=== PATIENT | male | born 1940 | race Caucasian/White ===

== ENCOUNTER → 2018-11-09 | Outpatient (CLI) | payer MEDICARE, BC ==
[2018-11-09 09:50] LABS: Blood Urea Nitrogen 21 mg/dL (9-20)
--- NOTE | 2018-11-09 12:37 | CT ---
EXAMINATION TYPE: CT ChestAbdPelvis w con DATE OF EXAM: 11/09/2018 COMPARISON: CT abdomen dated 02/28/2014 HISTORY: Prostate cancer CT DLP: 1543.4 mGycm Automated exposure control for dose reduction was used. CONTRAST: CT scan of the chest, abdomen and pelvis is performed with Oral Contrast and with IV Contrast, patien t injected with 100 mL of Isovue 300. FINDINGS: There is a Port-A-Cath in the right pectoral region, catheter extends via the right jugular approach into the superior vena cava. There is left axillary adenopathy present. LUNGS: The lungs are grossly clear, there is no concerning parenchymal mass or nodule identified. T here is no pleural effusion or pneumothorax seen. The tracheobronchial tree is patent. MEDIASTINUM: There are no greater than 1 cm hilar or mediastinal lymph nodes. Coronary artery calcif ication is present. Trace pericardial effusion. AORTA: No significant abnormality is seen. OTHER: No additional significant abnormality is seen. LIVER/GB: Multiple low dense foci scattered within the liver, greater than 20 lesions, the largest me asures approximately 3.3 cm similar to prior exam, gallbladder is unremarkable PANCREAS: No significant abnormality is seen. SPLEEN: No significant abnormality is seen. ADRENALS: No significant abnormality is seen. KIDNEYS: Cystic foci associated with the right greater than left kidney are again seen REPRODUCTIVE ORGANS: Prostate is not seen. BOWEL: There is extensive diverticular change especially in the sigmoid colon, the appendix is vasquez l. FREE AIR: No Free Air visible. ASCITES: None seen. RETROPERITONEAL ADENOPATHY: There are multiple retroperitoneal nodes which aren't enlarged or have d eveloped in the interval. LYMPH NODES: No greater than 1 cm abdominal or pelvic lymph nodes are appreciated. URINARY BLADDER: There is a thickened wall possibly due to lack of distention PELVIC ADENOPATHY: None visualized. Inguinal hernia noted containing fat on the left OSSEOUS STRUCTURES: No bilateral spondylolysis at L5, there are degenerative disc changes in the vis ualized spine. Stable probable bone island in the posterior left ilium.. IMPRESSION: Retroperitoneal and left axillary adenopathy, postop changes, additional findings above
--- NOTE | 2018-11-09 14:17 | NM ---
EXAMINATION TYPE: NM bone scan whole body DATE OF EXAM: 11/09/2018 COMPARISON: Whole body bone scan December 06, 2013 HISTORY: History of prostate cancer. Delayed whole-body scanning was performed following the injection of 25.9 mCi Tc 99m MDP. Images acq uired 3 hours post injection. FINDINGS: There are now innumerable foci of radiotracer uptake corresponding to CT with multifocal areas throug hout the lumbar spine corresponding to sclerotic lesions, radiotracer focus left iliac bone near sacr oiliac joint for reference, large radiotracer focus medial distal femoral diaphysis left knee with ad ditional involvement near left knee joint. Bilateral rib lesions, proximal left humeral lesion, and l esion near lateral right scapula glenohumeral joint corresponding to sclerotic foci consistent with i nterval development of osseous metastatic disease. IMPRESSION: Diffuse osseous metastatic disease now present as detailed above.
== END | disposition home or self-care (01) ==
LOC: RADNMMAIN 09:16
PROVIDERS: ATTEND Internal Medicine Hematology & Oncology
DX: C61 Malignant neoplasm of prostate (principal); Z98.890 Other specified postprocedural states
CPT/HCPCS: 82565; 84520; 71260; 74177; 78306; A9503; J1642; Q9967

== ENCOUNTER 2019-01-31 10:51 | Inpatient (IN) | payer MEDICARE, BC ==
[2019-01-31] MEDS ORDERED: SODIUM CHLORIDE 0.9% 1,000 ML IV STA ×2 (11:18→13:00)
[2019-01-31 12:36] LABS: Basophils % (A) 0 %; Eosinophils % (A) 0 %; HCT 32.1 % (39.0-53.0); HGB 10.7 gm/dL (13.0-17.5); Lymphocytes # (A) 0.7 k/uL (1.0-4.8); Lymphocytes % (A) 6 %; MCH 32.6 pg (25.0-35.0); MCHC 33.2 g/dL (31.0-37.0); MCV 97.9 fL (80.0-100.0); Mean Platelet Volume 7.6; Monocytes # (A) 0.5 k/uL (0-1.0); Monocytes % (A) 4 %; Neutrophils # (A) 11.2 k/uL (1.3-7.7); Neutrophils % (A) 89 %; Platelet Count 216 k/uL (150-450); RBC 3.28 m/uL (4.30-5.90); RDW 15.4 % (11.5-15.5); WBC 12.6 k/uL (3.8-10.6)
[2019-01-31 12:37] LABS: Partial Thromboplastin Time 27.1 sec (22.0-30.0); Prothrombin Time 10.7 sec (9.0-12.0)
[2019-01-31 12:41] LABS: Ammonia <9 umol/L (<30); Lactic Acid, Venous 0.9 mmol/L (0.7-2.0)
[2019-01-31 12:42] LABS: ALT 24 U/L (21-72); AST 125 U/L (17-59); Albumin 3.5 g/dL (3.5-5.0); Alkaline Phosphatase 339 U/L (38-126); Anion Gap 7 mmol/L; Blood Urea Nitrogen 20 mg/dL (9-20); Calcium 7.6 mg/dL (8.4-10.2); Carbon Dioxide 22 mmol/L (22-30); Chloride 101 mmol/L (98-107); Glucose 106 mg/dL (74-99); Magnesium 2.4 mg/dL (1.6-2.3); Phosphorus 1.6 mg/dL (2.5-4.5); Potassium 5.3 mmol/L (3.5-5.1); Sodium 130 mmol/L (137-145); Total Bilirubin 0.6 mg/dL (0.2-1.3); Total Protein 5.9 g/dL (6.3-8.2)
--- NOTE | 2019-01-31 12:49 | ED ---
Weakness HPI - General Chief complaint: Weakness Stated complaint: altered mental status, vomiting Time Seen by Provider: 01/31/19 11:18 Source: patient, RN notes reviewed, old records reviewed Mode of arrival: wheelchair Limitations: no limitations - History of Present Illness Initial comments: This is a 78-year-old male the ER for evaluation. Patient has pertinent history of prostate cancer with bony metastasis. Severe pain intractable nausea vomi ting inability to eat or drink appropriately. Patient has had persistent weight loss. To decreased intake, increasing weakness increasing altered mental status. Patient not feeling well, no recent hospital admissions no fevers. Again positive nausea with no vomiting or diarrhea. No recent travel history or known significant sick contacts MD Complaint: generalized weakness -: month(s) Location: generalized Severity: moderate Severity scale (1-10): 7 Consistency: constant Improves with: none Worsens with: none Context: recent illness, history of similar Associated Symptoms: loss of appetite, nausea/vomiting - Related Data Home Medications Medication Instructions Recorded Confirmed Aspirin EC [Ecotrin Low Dose] 81 mg PO DAILY 01/31/19 01/31/19 Calcium Carbonate/Vitamin D3 1 tab PO DAILY 01/31/19 01/31/19 [Calcium 600-Vit D3 200 Tablet] Gabapentin [Neurontin] 200 mg PO TID 01/31/19 01/31/19 Lisinopril [Zestril] 10 mg PO DAILY 01/31/19 01/31/19 Multivitamins, Thera [Multivitamin 1 tab PO DAILY 01/31/19 01/31/19 (formulary)] [place]-3 Fatty Acids [[place]-3] 1,000 mg PO DAILY 01/31/19 01/31/19 Prochlorperazine [Compazine] 10 mg PO Q6H PRN 01/31/19 01/31/19 Simvastatin [Zocor] 10 mg PO HS 01/31/19 01/31/19 predniSONE 10 mg PO DAILY 01/31/19 01/31/19 rOPINIRole HCL [Requip] 0.5 mg PO HS 01/31/19 01/31/19 traMADol HCl [Ultram] 50 mg PO Q6H PRN 01/31/19 01/31/19 Allergies Allergy/AdvReac Type Severity Reaction Status Date / Time No Known Allergies Allergy Verified 01/31/19 11:45 Review of Systems ROS Statement: Those systems with pertinent positive or pertinent negative responses have been documented in the HPI. ROS Other: All systems not noted in ROS Statement are negative. Past Medical History Past Medical History: Cancer, Hyperlipidemia, Hypertension Additional Past Medical History / Comment(s): PROSTATE CANCER, METASTASIS TO BONES. Past Surgical History: Prostate Surgery Past Psychological History: No Psychological Hx Reported Smoking Status: Former smoker Past Alcohol Use History: None Reported Past Drug Use History: None Reported General Exam Limitations: no limitations General appearance: alert, in no apparent distress, lethargic Head exam: Present: atraumatic, normocephalic, normal inspection Eye exam: Present: normal appearance, PERRL, EOMI. Absent: scleral icterus, conjunctival injection, periorbital swelling ENT exam: Present: normal exam, mucous membranes moist Neck exam: Present: normal inspection. Absent: tenderness, meningismus, lymphadenopathy Respiratory exam: Present: normal lung sounds bilaterally. Absent: respiratory distress, wheezes, rales, rhonchi, stridor Cardiovascular Exam: Present: regular rate, normal rhythm, normal heart sounds. Absent: systolic murmur, diastolic murmur, rubs, gallop, clicks GI/Abdominal exam: Present: soft, normal bowel sounds. Absent: distended, tenderness, guarding, rebound, rigid Extremities exam: Present: normal inspection, full ROM, normal capillary refill. Absent: tenderness, pedal edema, joint swelling, calf tenderness Back exam: Present: normal inspection Neurological exam: Present: alert, oriented X3, CN II-XII intact Psychiatric exam: Present: normal affect, normal mood Skin exam: Present: warm, dry, intact, normal color. Absent: rash Course Vital Signs 01/31/19 01/31/19 10:55 12:04 Temperature 98.3 F Pulse Rate 89 82 Respiratory 16 20 Rate Blood Pressure 102/64 112/57 O2 Sat by Pulse 98 98 Oximetry - Reevaluation(s) Reevaluation #1: 01/31/19 13:03 Medical records reviewed Reevaluation #2: 01/31/19 13:03 A she remains in severe pain and unable able to tolerate oral intake here in the ER EKG Findings - EKG Comments: EKG Findings:: EKG shows sinus rhythm rate of 80, pO2 40, QRS 90, QTc 447 Medical Decision Making - Medical Decision Making 78 male the ER for evaluation of altered mental status weakness persistent nausea vomiting, patient last chemo treatment a few months ago for prostate cancer with bony metastases. Patient does have intractable pain. Will admit for symptom management hydration and calories - Lab Data Result diagrams: 01/31/19 12:12 01/31/19 12:12 Lab Results 01/31/19 01/31/19 01/31/19 Range/Units 12:12 12:12 12:12 WBC 12.6 H (3.8-10.6) k/uL RBC 3.28 L (4.30-5.90) m/uL Hgb 10.7 L (13.0-17.5) gm/dL Hct 32.1 L (39.0-53.0) % MCV 97.9 (80.0-100.0) fL MCH 32.6 (25.0-35.0) pg MCHC 33.2 (31.0-37.0) g/dL RDW 15.4 (11.5-15.5) % Plt Count 216 (150-450) k/uL Neutrophils % 89 % Lymphocytes % 6 % Monocytes % 4 % Eosinophils % 0 % Basophils % 0 % Neutrophils # 11.2 H (1.3-7.7) k/uL Lymphocytes # 0.7 L (1.0-4.8) k/uL Monocytes # 0.5 (0-1.0) k/uL Eosinophils # 0.0 (0-0.7) k/uL Basophils # 0.0 (0-0.2) k/uL PT (9.0-12.0) sec INR (<1.2) APTT (22.0-30.0) sec Sodium 130 L (137-145) mmol/L Potassium 5.3 H (3.5-5.1) mmol/L Chloride 101 (98-107) mmol/L Carbon Dioxide 22 (22-30) mmol/L Anion Gap 7 mmol/L BUN 20 (9-20) mg/dL Creatinine 0.68 (0.66-1.25) mg/dL Est GFR (CKD-EPI)AfAm >90 (>60 ml/min/1.73 sqM) Est GFR (CKD-EPI)NonAf >90 (>60 ml/min/1.73 sqM) Glucose 106 H (74-99) mg/dL Plasma Lactic Acid Mick 0.9 (0.7-2.0) mmol/L Calcium 7.6 L (8.4-10.2) mg/dL Phosphorus 1.6 L (2.5-4.5) mg/dL Magnesium 2.4 H (1.6-2.3) mg/dL Total Bilirubin 0.6 (0.2-1.3) mg/dL AST 125 H (17-59) U/L ALT 24 (21-72) U/L Alkaline Phosphatase 339 H (38-126) U/L Ammonia <9 (<30) umol/L Total Protein 5.9 L (6.3-8.2) g/dL Albumin 3.5 (3.5-5.0) g/dL 01/31/19 Range/Units 12:12 WBC (3.8-10.6) k/uL RBC (4.30-5.90) m/uL Hgb (13.0-17.5) gm/dL Hct (39.0-53.0) % MCV (80.0-100.0) fL MCH (25.0-35.0) pg MCHC (31.0-37.0) g/dL RDW (11.5-15.5) % Plt Count (150-450) k/uL Neutrophils % % Lymphocytes % % Monocytes % % Eosinophils % % Basophils % % Neutrophils # (1.3-7.7) k/uL Lymphocytes # (1.0-4.8) k/uL Monocytes # (0-1.0) k/uL Eosinophils # (0-0.7) k/uL Basophils # (0-0.2) k/uL PT 10.7 (9.0-12.0) sec INR 1.0 (<1.2) APTT 27.1 (22.0-30.0) sec Sodium (137-145) mmol/L Potassium (3.5-5.1) mmol/L Chloride (98-107) mmol/L Carbon Dioxide (22-30) mmol/L Anion Gap mmol/L BUN (9-20) mg/dL Creatinine (0.66-1.25) mg/dL Est GFR (CKD-EPI)AfAm (>60 ml/min/1.73 sqM) Est GFR (CKD-EPI)NonAf (>60 ml/min/1.73 sqM) Glucose (74-99) mg/dL Plasma Lactic Acid Mick (0.7-2.0) mmol/L Calcium (8.4-10.2) mg/dL Phosphorus (2.5-4.5) mg/dL Magnesium (1.6-2.3) mg/dL Total Bilirubin (0.2-1.3) mg/dL AST (17-59) U/L ALT (21-72) U/L Alkaline Phosphatase (38-126) U/L Ammonia (<30) umol/L Total Protein (6.3-8.2) g/dL Albumin (3.5-5.0) g/dL - Radiology Data Radiology results: report reviewed (Chest x-rays negative for acute disease CT brain is pending), image reviewed Disposition Clinical Impression: Dehydration, Nausea & vomiting, Weakness, Altered mental state Disposition: ADMITTED IP TO THIS [facility] Condition: Fair Is patient prescribed a controlled substance at d/c from ED?: No Referrals: [facility],Clinic [Primary Care Provider] - 1-2 days
[2019-01-31] MEDS ORDERED: DEXTROSE 5%-0.45% NACL 1,000 ML IV ONE (13:00)
[2019-01-31] MEDS ORDERED: ONDANSETRON 4 MG/2 ML VIAL IVP PRN (13:00)
[2019-01-31] MEDS ORDERED: ONDANSETRON 4 MG/2 ML VIAL IVP STA (13:00)
[2019-01-31] MEDS ORDERED: PANTOPRAZOLE 40 MG/10 ML VIAL IVP STA (13:00)
[2019-01-31] MEDS ORDERED: SODIUM CHLORIDE 0.9% 1,000 ML IV ONE (13:00)
--- NOTE | 2019-01-31 13:23 | XR ---
EXAMINATION TYPE: XR chest 2V DATE OF EXAM: 01/31/2019 COMPARISON: Prior chest CT 11/09/2018 HISTORY: Pain and Prostate cancer TECHNIQUE: Frontal and lateral views of the chest are obtained on 3 images. FINDINGS: There is no focal air space opacity, pleural effusion, or pneumothorax seen. The cardiac silhouette size is within normal limits. The osseous structures are remarkable for sclerotic areas compatible with abnormal bone scan and metastatic disease. There is a Port-A-Cath present via right j ugular approach, distal tip of the catheter overlying the superior vena cava. There are cardiac leads . IMPRESSION: Metastatic disease.
[2019-01-31 13:32] LABS: Appearance,Urine Clear (Clear); Bilirubin,Urine Negative (Negative); Blood,Urine Negative (Negative); Color,Urine Yellow; Glucose,Urine (UA) Negative (Negative); Ketones,Urine Trace (Negative); Leukocyte Esterase,Urine Negative (Negative); Mucus,Urine Many /hpf; Nitrite,Urine Negative (Negative); PH, Urine 5.5 (5.0-8.0); Protein,Urine 2+ (Negative); RBC,Urine 1 /hpf (0-5); Specific Gravity,Urine 1.031 (1.001-1.035); Squamous Epithelial Cell,Urine <1 /hpf (0-4); Urobilinogen,Urine <2.0 mg/dL (<2.0)
--- NOTE | 2019-01-31 13:45 | CT ---
EXAMINATION TYPE: CT brain wo con DATE OF EXAM: 01/31/2019 COMPARISON: None HISTORY: Headache, nausea, vomiting CT DLP: 1074.4 mGycm Automated exposure control for dose reduction was used. TECHNIQUE: CT scan of the head is performed without contrast. FINDINGS: There is no acute intracranial hemorrhage or midline shift identified. CSF attenuated old lacunar injury of the lentiform nucleus is seen on the right on image 19. There is diffuse ventricul ar and sulcal prominence consistent with diffuse age-related cerebral atrophy. There is low-attenuat ion in the periventricular white matter consistent with chronic small vessel ischemic change. No susp icious extra-axial fluid collection. Partially empty sella turcica is incidentally seen. The globes a re intact and the visualized sinuses are clear. IMPRESSION: No acute intracranial hemorrhage or midline shift. 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
[2019-01-31 14:16] VITALS: BMI 29.6
[2019-01-31] MEDS ORDERED: PROCHLORPERAZINE 10 MG TAB PO PRN (21:13)
[2019-01-31] MEDS: MELATONIN 3 MG TABLET PO SCH (21:27)
[2019-01-31] MEDS: GABAPENTIN 100 MG CAP PO SCH (21:27)
[2019-01-31] MEDS: ATORVASTATIN 10 MG TAB PO SCH (21:40)
[2019-01-31] MEDS: traMADol 50 MG TAB PO PRN (22:48)
[2019-01-31] MEDS ORDERED: ALPRAZolam 0.25 MG TAB PO PRN (22:53)
[2019-02-01 07:47] LABS: Basophils % (A) 0 %; Eosinophils % (A) 0 %; HCT 30.5 % (39.0-53.0); HGB 9.8 gm/dL (13.0-17.5); Lymphocytes # (A) 0.9 k/uL (1.0-4.8); Lymphocytes % (A) 11 %; MCH 32.3 pg (25.0-35.0); MCHC 32.3 g/dL (31.0-37.0); MCV 100.2 fL (80.0-100.0); Macrocytosis Slight; Mean Platelet Volume 7.7; Monocytes # (A) 0.6 k/uL (0-1.0); Monocytes % (A) 8 %; Neutrophils # (A) 6.3 k/uL (1.3-7.7); Neutrophils % (A) 80 %; Platelet Count 187 k/uL (150-450); RBC 3.04 m/uL (4.30-5.90); RDW 15.3 % (11.5-15.5)
[2019-02-01 07:52] LABS: Anion Gap 4 mmol/L; Blood Urea Nitrogen 14 mg/dL (9-20); Calcium 7.1 mg/dL (8.4-10.2); Carbon Dioxide 24 mmol/L (22-30); Chloride 105 mmol/L (98-107); Glucose 106 mg/dL (74-99); Potassium 4.8 mmol/L (3.5-5.1); Sodium 133 mmol/L (137-145)
--- NOTE | 2019-02-01 09:09 | HP ---
HISTORY AND PHYSICAL DATE OF SERVICE: 01/31/2019 CHIEF COMPLAINTS: Weakness, change in mental status, vomiting. HISTORY OF PRESENT ILLNESS: This 78-year-old gentleman with a past medical history of multiple medical problems including prostate cancer with bony METS, history of hypertension, hyperlipidemia, history of prostate surgery, being followed by Dr. Arevalo and Dr. Cavazos in the outpatient setting is receiving chemotherapy. The patient has noted to be grossly weak and patient had nausea and unable to keep anything down. The patient came to [facility], admitted for further evaluation and treatment. There is no history of fever, chills, or rigors. No history of headache, loss of consciousness or seizures. PAST MEDICAL HISTORY: Hypertension, hyperlipidemia, history of prostate cancer. HOME MEDICATIONS ARE: 1. Ultram 50 mg q.6 p.r.n. 2. Requip 0.5 mg q.h.s. 3. Prednisone 10 mg daily. 4. Zocor 10 mg q.h.s. 5. Compazine 10 mg q.6 p.r.n. 6. [place]-3 one thousand daily. 7. Multivitamin 1 p.o. daily. 8. Zestril 10 mg daily. 9. Neurontin 200 mg p.o. daily. 10.Vitamin D3 one tablet p.o. daily. 11.Ecotrin 81 mg p.o. daily. ALLERGIES: None. FAMILY HISTORY: No history of heart disease or strokes in the family. SOCIAL HISTORY: No current smoking. Previous history of smoking, no history of alcohol. REVIEW OF SYSTEMS: ENT: Diminished vision and hearing. CARDIOVASCULAR: No angina or palpitations. RESPIRATION: No cough. GI: No nausea. : No dysuria. NERVOUS SYSTEM:: No numbness since the anastomosis: As mentioned in 20 minutes standing endocrine mentioned earlier. CONSTITUTIONAL: As mentioned earlier. PHYSICAL: Mentioned discussed degenerative pulse 84 blood pressure 118/56, respiration 18, temperature 98.1 pulse ox 100 percent on 2 L HEENT is conjunctivae normal. Oral mucosa dry. Neck is no jugular venous distention. No lymph node enlargement. Cardiovascular system: No stenosis pressure in the bases. No rhonchi. No crackles. ABDOMEN: Soft, nontender. Legs no edema. No swelling. NERVOUS SYSTEM: Higher functions as mentioned earlier. Moves all 4 limbs. No focal motor deficits LYMPHATICS: No lymph node enlargement in the neck or axillae. SKIN: No ulcer, rash, bleeding. JOINTS: No active deformity. LABS: WBC 12.2, hemoglobin is 10.7, sodium 135, potassium 5.3 and magnesium is 2.4. ASSESSMENT: 1. Intractable nausea, vomiting, possibly acute gastritis, possibly chemotherapy induced with dehydration. 2. Change in mental status, acute metabolic encephalopathy secondary to dehydration. 3. Increased WBC possibly reactive. 4. Rule out sepsis. 5. Anemia, normocytic. 6. Hyponatremia. 7. Mild hyperkalemia. 8. Hypomagnesemia. 9. Hypophosphatemia. 10.Increased alkaline phosphatase. 11.Increased AST. 12.History of prostate cancer with METS. 13.Hypertension. 14.Hyperlipidemia. 15.History of chemotherapy. RECOMMENDATION: This is an 78-year-old gentleman who presented with multiple complex medical issues. Will monitor the patient closely, continue with the current management and symptomatic treatment. Will treat the patient symptomatically with empiric antibiotics. Will add the IV fluids and empiric antibiotics, otherwise, obtain the cultures. Will check lactic acid. Closely follow with Infectious Disease. Guarded prognosis because of multiple complex medical issues. Further recommendations to follow. See orders for further details. A copy of this will be forwarded to Dr. Arevalo who is the primary physician. MMODL / IJN: [id number] /
[2019-02-01] MEDS: PANTOPRAZOLE 40 MG/10 ML VIAL IVP SCH (09:17)
[2019-02-01] MEDS: LISINOPRIL 10 MG TAB PO SCH (09:18)
[2019-02-01] MEDS: predniSONE 5 MG TAB PO SCH (09:18)
[2019-02-01] MEDS: MULTIVITAMINS, THERA 1 EACH TAB PO SCH (09:18)
[2019-02-01] MEDS: GABAPENTIN 100 MG CAP PO SCH ×3 (09:18→21:13)
[2019-02-01] MEDS: ASPIRIN 81 MG PO SCH (09:18)
[2019-02-01] MEDS: HEPARIN SODIUM,PORCINE 5,000 UNIT/ML 1 ML VIAL SQ SCH ×2 (09:18→21:13)
--- NOTE | 2019-02-01 16:03 | P.CONS ---
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 His PSA in 04/20 had been 7.82. His clinical stage was T2B, and he underwent a Robotic Assisted Laparoscopic Prostatectomy in 07.21 at the [facility]. He had adjuvant EBRT in 02/19. His PSA in 03/21 was 0.410. He was started on LHRh agonist , I believe, in early fall, as his PSA in 05/23 had increased to 1.76. He took Casodex from 11/21 to 11/22, with initiation due to PSA increase to 4.13 in 11/21. He did not respond to withdrawal of the Casodex, wth PSA continuing to rise steadily 20.98 by 02/23. Bone scan in 11/23 showed no distinct metastases. However CT scan from 02/23 showed retroperitoneal and para- aortic adenopathy, maximal 1.9 cm in the P-A area. 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 He was thus referred here for further recommendations. He started Zytiga + Prednisone on 03/29/14. PSA dropped to 2.6 in 09/26. He reports good tolerance with no n/v/f/c/LE swelling/orthopnea or palptations. He was seen at this own request on 03/12/15, as he had developed pain in his LLE radiating down from the buttock to the foot. This was worse with walking, and improved with leaning forward. It would sometimes wake him from sleep. CT of the spine and L hip were done, showing extensive degenerative changes, but no malignant involvement. His PSA from late 02/24 was stable at 2.89. His appetite and energy level are maintained. He has tolerable hot flashes. His back symptoms are much improved after a course of PO steroids per Ortho Spine. He was then on Ibuprofen, which he stopped in 08/26. He was changed to Xtandi in 09/27, as his PSA had increased steadily to 28+. He was started on Taxotere and Prednisone in 02/25 as PSA continued to increase . He is s/p 11 cycles. Treatment was stopped in 10/29 due to progressive side effects. He was started back on Xtandi in late 04/28 due to increase in PSA to 16.8. However PSA continued to increase ( up to 43 by 07/29) and thus Taxotere was resumed on 08/19/17. He is s/p 7 cycles after restarting. Treatment was held for a break, in 01/27. he was started back on taxotere on 10/20/18 as PSA had increased to 125.6. He is s/p 4 cycles he is continuing LHRH agonist Q 6mths with Urology. He was changed to Cabazitaxel due to continued PSA progression, as well as increasing neuropathy from the Taxotere, receiving cycle 1 on 01/12/19. But according to the patient's , he has been having issues with agitation, memory loss, and confusion, for at least the past 5-6 weeks. This has become more prominent, over the past 2 weeks. He was seen in the hospital on the day of this admission, and was very weak and confused as well as lethargic. He had been having some loose bowel movements, and nausea, and his reported very poor oral intake. He was therefore admitted for further evaluation and recommendation. CT of the brain without contrast was negative. Past Medical History Past Medical History: Cancer, Hyperlipidemia, Hypertension Additional Past Medical History / Comment(s): PROSTATE CANCER- METASTASIS TO BONES, Restless leg syndrome History of Any Multi-Drug Resistant Organisms: None Reported Past Surgical History: Prostate Surgery Additional Past Surgical History / Comment(s): Tumor removed from neck x2, Chemotherapy 3 weeks ago Past Anesthesia/Blood Transfusion Reactions: No Reported Reaction Past Psychological History: No Psychological Hx Reported Smoking Status: Former smoker Past Alcohol Use History: None Reported Past Drug Use History: None Reported Medications and Allergies Home Medications Medication Instructions Recorded Confirmed Type Aspirin EC [Ecotrin Low Dose] 81 mg PO DAILY 01/31/19 01/31/19 History Calcium Carbonate/Vitamin D3 1 tab PO DAILY 01/31/19 01/31/19 History [Calcium 600-Vit D3 200 Tablet] Gabapentin [Neurontin] 200 mg PO TID 01/31/19 01/31/19 History Lisinopril [Zestril] 10 mg PO DAILY 01/31/19 01/31/19 History Multivitamins, Thera [Multivitamin 1 tab PO DAILY 01/31/19 01/31/19 History (formulary)] [place]-3 Fatty Acids [[place]-3] 1,000 mg PO DAILY 01/31/19 01/31/19 History Prochlorperazine [Compazine] 10 mg PO Q6H PRN 01/31/19 01/31/19 History Simvastatin [Zocor] 10 mg PO HS 01/31/19 01/31/19 History predniSONE 10 mg PO DAILY 01/31/19 01/31/19 History rOPINIRole HCL [Requip] 0.5 mg PO HS 01/31/19 01/31/19 History traMADol HCl [Ultram] 50 mg PO Q6H PRN 01/31/19 01/31/19 History Allergies Allergy/AdvReac Type Severity Reaction Status Date / Time No Known Allergies Allergy Verified 01/31/19 11:45 Physical Exam Vitals: Vital Signs Temp Pulse Pulse Resp BP BP Pulse Ox 02/01/19 12:59 98.3 F 79 17 134/61 99 02/01/19 07:48 100 02/01/19 05:11 97.3 F L 76 18 128/59 98 02/01/19 00:00 79 18 01/31/19 21:50 98.2 F 79 18 121/58 97 01/31/19 17:40 17 01/31/19 17:21 98.1 F 84 18 118/56 100 01/31/19 17:00 98.9 F 82 20 131/66 96 01/31/19 16:00 78 20 141/56 99 Intake and Output 01/31/19 02/01/19 02/01/19 22:59 06:59 14:59 Intake Total 120 Balance 120 Intake: Oral 120 Other: Voiding Method Urinal Urinal Urinal # Voids 1 3 Weight 88.451 kg - Constitutional General appearance: no acute distress - EENT Eyes: EOMI, PERRLA ENT: hearing grossly normal, normal oropharynx - Neck Neck: no lymphadenopathy Thyroid: bilateral: normal size - Respiratory Respiratory: bilateral: CTA - Cardiovascular Rhythm: regular Heart sounds: normal: S1, S2 - Gastrointestinal General gastrointestinal: normal bowel sounds, soft - Integumentary Integumentary: normal - Neurologic Neurologic: CNII-XII intact - Musculoskeletal Musculoskeletal: generalized weakness, strength equal bilaterally - Psychiatric Major change in mental status. Affect is slow. Patient was able to recognize me, but had significant issues with recall. He also had difficulty finding words though speech was clear. Results CBC & Chem 7: 02/01/19 07:16 02/01/19 07:16 Labs: Abnormal Lab Results - Last 24 Hours (Table) 02/01/19 02/01/19 Range/Units 07:16 07:16 RBC 3.04 L (4.30-5.90) m/uL Hgb 9.8 L (13.0-17.5) gm/dL Hct 30.5 L (39.0-53.0) % MCV 100.2 H (80.0-100.0) fL Lymphocytes # 0.9 L (1.0-4.8) k/uL Sodium 133 L (137-145) mmol/L Creatinine 0.61 L (0.66-1.25) mg/dL Glucose 106 H (74-99) mg/dL Calcium 7.1 L (8.4-10.2) mg/dL Microbiology - Last 24 Hours (Table) 01/31/19 02:51 Urine Culture - Preliminary Urine,Clean Catch Chest x-ray: report reviewed CT Scan - head: report reviewed Assessment and Plan (1) Altered mental state Narrative/Plan: At this time the etiology is unclear. Dehydration could be a factor. Brain metastasis would also be in the differential. CT brain was negative but was done without contrast. Therefore MRI with gadolinium will be ordered. The patient CT scan does show significant white matter changes. Therefore the possibility could be underlying early dementia aggravated by "chemo brain" Patient is at least partially improved with hydration. Continue same. Await MRI results Current Visit: Yes Status: Acute Code(s): R41.82 - ALTERED MENTAL STATUS, UNSPECIFIED SNOMED Code(s): 909237486 (2) Dehydration Narrative/Plan: Due to chemotherapy effect, causing diarrhea as well as nausea vomiting and decreased oral intake. Continue IV hydration. Current Visit: Yes Status: Acute Code(s): E86.0 - DEHYDRATION SNOMED Code(s): 53085730 (3) Nausea & vomiting Narrative/Plan: Related to chemotherapy, most likely. This has improved significantly. IV antibiotics when necessary Current Visit: Yes Status: Acute Code(s): R11.2 - NAUSEA WITH VOMITING, UNSPECIFIED SNOMED Code(s): 98528285 (4) Prostate CA Narrative/Plan: Therapeutic and diagnostic circumstances as described. The patient appears to b e having side effects related to the chemotherapy. I will check PSA. If he is responding, I will dose reduce with his next cycle Current Visit: Yes Status: Acute Code(s): C61 - MALIGNANT NEOPLASM OF PROSTA TE SNOMED Code(s): 989763820
--- NOTE | 2019-02-01 16:11 | PN ---
PROGRESS NOTE DATE OF SERVICE: 02/01/2019 This 78-year-old gentleman who was admitted with intractable nausea and vomiting as well as acute gastritis, possibly chemotherapy-induced, had severe dehydration. Patient is on IV fluids. Patient is feeling slightly better. No chest pain. No palpitations. No fever. Cardiology is following the patient closely. PHYSICAL EXAMINATION: Alert and oriented x3. Pulse is 76, blood pressure 120/50, respiration 18, temperature 97.3, pulse ox 98% on 2 L. HEENT: Conjunctivae normal. NECK: No jugular venous distention. CARDIOVASCULAR SYSTEM: S1, S2 muffled. RESPIRATORY SYSTEM: Breath sounds diminished at the bases. A few scattered rhonchi. No crackles. ABDOMEN: Soft, non-tender. NERVOUS SYSTEM: No focal deficit. LABS: WBC 8, hemoglobin 9.8, sodium 133, calcium 7.1. ASSESSMENT: 1. Intractable nausea and vomiting with possible acute gastritis, possibly secondary to chemotherapy and dehydration. 2. Change in mental status, acute metabolic encephalopathy secondary to dehydration. 3. Increased white count, possibly reactive. 4. Rule out sepsis. 5. Anemia, normocytic. 6. Hyponatremia. 7. Mild hypokalemia. 8. Hypomagnesemia. 9. Hypophosphatemia. 10.Increased alkaline phosphatase. 11.Increased AST. 12.History of prostate cancer with metastases. 13.Hypertension. 14.Hyperlipidemia. 15.History of chemotherapy. RECOMMENDATIONS AND DISCUSSION: I recommend to continue current medications, continue with the monitoring, symptomatic treatment. The patient's dehydration is improving at this time. I would recommend repeating electrolytes, which are also showing some improvement. Otherwise, continue the rest of the medications. Cultures are negative so far. Empiric antibiotic to be continued, which could be discontinued if the cultures are negative. Otherwise, continue to monitor. Further recommendations to follow. Closely follow with Dr. Cavazos. MMLEO / FABBYN: [id number] /
[2019-02-01] MEDS: ATORVASTATIN 10 MG TAB PO SCH (21:14)
[2019-02-01] MEDS: MELATONIN 3 MG TABLET PO SCH (21:15)
[2019-02-02] MEDS: PANTOPRAZOLE 40 MG/10 ML VIAL IVP SCH (08:20)
[2019-02-02] MEDS: MULTIVITAMINS, THERA 1 EACH TAB PO SCH (08:20)
[2019-02-02] MEDS: ASPIRIN 81 MG PO SCH (08:20)
[2019-02-02] MEDS: LISINOPRIL 10 MG TAB PO SCH (08:20)
[2019-02-02] MEDS: GABAPENTIN 100 MG CAP PO SCH ×3 (08:20→20:15)
[2019-02-02] MEDS: predniSONE 5 MG TAB PO SCH (08:20)
[2019-02-02] MEDS: HEPARIN SODIUM,PORCINE 5,000 UNIT/ML 1 ML VIAL SQ SCH ×2 (08:20→20:15)
[2019-02-02 09:00] LABS: Basophils % (A) 0 %; Eosinophils % (A) 0 %; HCT 30.8 % (39.0-53.0); HGB 9.9 gm/dL (13.0-17.5); Lymphocytes # (A) 0.8 k/uL (1.0-4.8); Lymphocytes % (A) 11 %; MCH 31.8 pg (25.0-35.0); MCHC 32.2 g/dL (31.0-37.0); MCV 98.9 fL (80.0-100.0); Mean Platelet Volume 7.2; Monocytes # (A) 0.5 k/uL (0-1.0); Monocytes % (A) 6 %; Neutrophils # (A) 6.2 k/uL (1.3-7.7); Neutrophils % (A) 82 %; Platelet Count 225 k/uL (150-450); RBC 3.11 m/uL (4.30-5.90); RDW 14.9 % (11.5-15.5); WBC 7.6 k/uL (3.8-10.6)
[2019-02-02 09:17] LABS: ALT 20 U/L (21-72); AST 86 U/L (17-59); Albumin 2.9 g/dL (3.5-5.0); Alkaline Phosphatase 280 U/L (38-126); Anion Gap 5 mmol/L; Blood Urea Nitrogen 12 mg/dL (9-20); Calcium 6.7 mg/dL (8.4-10.2); Carbon Dioxide 22 mmol/L (22-30); Chloride 104 mmol/L (98-107); Glucose 143 mg/dL (74-99); Potassium 4.6 mmol/L (3.5-5.1); Sodium 131 mmol/L (137-145); Total Bilirubin 0.5 mg/dL (0.2-1.3); Total Protein 5.4 g/dL (6.3-8.2)
[2019-02-02] MEDS ORDERED: LORazepam 2 MG/ML INJ IV ONE (15:45)
--- NOTE | 2019-02-02 16:57 | P.PN ---
Subjective Progress Note Date: 02/02/19 The patient still has significant generalized weakness. He is more alert oriented, but is still having difficulty in finding words. He denies any diarrhea, nausea or vomiting. Appetite is improved Objective - Vital Signs Vital signs: Vital Signs Temp 98.2 F 02/02/19 12:52 Pulse 78 02/02/19 12:52 Resp 17 02/02/19 12:52 BP 117/59 02/02/19 12:52 Pulse Ox 96 02/02/19 12:52 Intake & Output 02/01/19 02/02/19 02/02/19 18:59 06:59 18:59 Intake Total 960 602 770 Output Total 1100 1050 2230 Balance -140 -448 -1460 Weight 88.451 kg Intake: Intake, IV Titration 382 50 Amount Dextrose 5%-0.45% NaCl 1, 332 000 ml @ 83 mls/hr IV . Q12H3M [facility] Rx#:[id number] cefTRIAXone 1 gm In 50 50 Sodium Chloride 0.9% 50 ml @ 100 mls/hr IVPB Q24H [facility] Rx#:[id number] Oral 960 220 720 Output: Urine 1100 1050 2230 Other: Voiding Method Urinal Urinal Urinal # Voids 1 4 - Constitutional General appearance: Present: no acute distress - EENT Eyes: Present: EOMI ENT: Present: hearing grossly normal, normal oropharynx - Respiratory Respiratory: bilateral: CTA - Cardiovascular Rhythm: regular Heart sounds: normal: S1, S2 - Gastrointestinal General gastrointestinal: Present: normal bowel sounds, soft - Integumentary Integumentary: Present: normal - Neurologic Neurologic: Present: CNII-XII intact - Musculoskeletal Musculoskeletal: Present: generalized weakness, strength equal bilaterally - Psychiatric Psychiatric Comment(s): As per HPI - Labs CBC & Chem 7: 02/02/19 08:26 02/02/19 08:26 Labs: Abnormal Lab Results - Last 24 Hours (Table) 02/02/19 02/02/19 Range/Units 08:26 08:26 RBC 3.11 L (4.30-5.90) m/uL Hgb 9.9 L (13.0-17.5) gm/dL Hct 30.8 L (39.0-53.0) % Lymphocytes # 0.8 L (1.0-4.8) k/uL Sodium 131 L (137-145) mmol/L Creatinine 0.57 L (0.66-1.25) mg/dL Glucose 143 H (74-99) mg/dL Calcium 6.7 L (8.4-10.2) mg/dL AST 86 H (17-59) U/L ALT 20 L (21-72) U/L Alkaline Phosphatase 280 H (38-126) U/L Total Protein 5.4 L (6.3-8.2) g/dL Albumin 2.9 L (3.5-5.0) g/dL Microbiology - Last 24 Hours (Table) 01/31/19 02:51 Urine Culture - Final Urine,Clean Catch 01/31/19 23:20 Blood Culture - Preliminary Blood No Growth after 24 hours Assessment and Plan (1) Altered mental state Narrative/Plan: The patient is more alert and oriented today. However affect is still slower than baseline. He continues to have difficulty intermittently finding words. MRI has been ordered and is pending. It was discussed with his , that if MRI is negative for brain metastasis, another possibility, could be underlying dementia (given extensive microvascular ischemic changes on CT scan) starting to progress rapidly due to chemotherapy. There is also likely an acute component, due to dehydration, which has improved with hydration. Current Visit: Yes Status: Acute Code(s): R41.82 - ALTERED MENTAL STATUS, UNSPECIFIED SNOMED Code(s): 364868489 (2) Dehydration Narrative/Plan: Improved with IV hydration Current Visit: Yes Status: Acute Code(s): E86.0 - DEHYDRATION SNOMED Code(s): 72930882 (3) Nausea & vomiting Narrative/Plan: Resolved Current Visit: Yes Status: Acute Code(s): R11.2 - NAUSEA WITH VOMITING, UNSPECIFIED SNOMED Code(s): 90735188 (4) Prostate CA Narrative/Plan: If patient's symptoms persist, at least partially, and it is felt that this is due to chemotherapy effect, we will discuss with him and his about the risks vs benefits of continuing treatment Current Visit: Yes Status: Acute Code(s): C61 - MALIGNANT NEOPLASM OF PROSTATE SNOMED Code(s): 684428871
--- NOTE | 2019-02-02 17:11 | MR ---
EXAMINATION TYPE: MR brain wo/w con DATE OF EXAM: 02/02/2019 COMPARISON: None HISTORY: Altered mental status, Metastatic prostate cancer. TECHNIQUE: Multiplanar, multisequence images of the brain and brainstem is performed without and with IV contras t, utilizing 9 mL intravenous Gadavist . FINDINGS: There is cerebral cortical atrophy. There is no mass effect nor midline shift. There is no sign of in tracranial hemorrhage. There is some thinning of the corpus callosum. There is no evidence of cortica l infarct. On the T2 and FLAIR images there are foci of slight increased signal in the brainstem at the lucy. Th ere is a 4 mm focus of increased signal in the white matter right posterior frontal lobe. Sella turcica appears normal. The contrast images show no pathologic enhancement. There is normal con trast opacification of the venous sinuses. There is arterial flow in the anterior middle and posterio r cerebral arteries. The calvarium is intact. IMPRESSION: Slight increased signal in small foci in the brainstem could relate to microvascular isch emia. Mild atrophy.. No evidence of metastatic disease.
--- NOTE | 2019-02-02 17:26 | P.PN ---
Subjective 78-year-old gentleman with a history of prostate cancer with bony metastases, hypertension, hyperlipidemia comes in with weakness and nausea unable to keep anything down. Patient was thus admitted. Patient apparently was confused more than the baseline. on 02/02/2019 Patient apparently is better than before according to the and the cyanosis or the bedside. He still having some word finding difficulties. Patient does not complain of any chest pain racing heart, no cough no shortness breath. Objective - Vital Signs Vital signs: Vital Signs Temp 98.2 F 02/02/19 12:52 Pulse 78 02/02/19 16:00 Resp 16 02/02/19 16:00 BP 117/59 02/02/19 12:52 Pulse Ox 96 02/02/19 12:52 Intake & Output 02/01/19 02/02/19 02/02/19 18:59 06:59 18:59 Intake Total 960 602 770 Output Total 1100 1050 2230 Balance -140 -448 -1460 Weight 88.451 kg Intake: Intake, IV Titration 382 50 Amount Dextrose 5%-0.45% NaCl 1, 332 000 ml @ 83 mls/hr IV . Q12H3M [facility] Rx#:[id number] cefTRIAXone 1 gm In 50 50 Sodium Chloride 0.9% 50 ml @ 100 mls/hr IVPB Q24H [facility] Rx#:[id number] Oral 960 220 720 Output: Urine 1100 1050 2230 Other: Voiding Method Urinal Urinal Urinal # Voids 1 4 - Exam On exam, alert and oriented x2. He knew his name he no where he is but he does not know why he is here HEENT: Conjunctivae normal. eyes normal. NECK: No JVD. No thyroid enlargement. No LNs CARDIOVASCULAR: -S2 positive RESPIRATION: Breath sounds diminished in the bases. No rhonchi or crackles. No bronchial breathing. ABDOMEN: Soft, nontender . No guarding. no masses palpable. No ascites, No hepatosplenomegaly.Bowel sounds heard. LEGS: No edema. no swelling NERVOUS SYSTEM: Cranial N 2-12 grossly normal. Moves all 4 limbs. No focal deficits. No sensory deficit. No signs of cerebellar dysfucntion. Skin: no ulcer no rash - Labs CBC & Chem 7: 02/02/19 08:26 02/02/19 08:26 Labs: Abnormal Lab Results - Last 24 Hours (Table) 02/02/19 02/02/19 Range/Units 08:26 08:26 RBC 3.11 L (4.30-5.90) m/uL Hgb 9.9 L (13.0-17.5) gm/dL Hct 30.8 L (39.0-53.0) % Lymphocytes # 0.8 L (1.0-4.8) k/uL Sodium 131 L (137-145) mmol/L Creatinine 0.57 L (0.66-1.25) mg/dL Glucose 143 H (74-99) mg/dL Calcium 6.7 L (8.4-10.2) mg/dL AST 86 H (17-59) U/L ALT 20 L (21-72) U/L Alkaline Phosphatase 280 H (38-126) U/L Total Protein 5.4 L (6.3-8.2) g/dL Albumin 2.9 L (3.5-5.0) g/dL Microbiology - Last 24 Hours (Table) 01/31/19 02:51 Urine Culture - Final Urine,Clean Catch 01/31/19 23:20 Blood Culture - Preliminary Blood No Growth after 24 hours Assessment and Plan Assessment: - acute encephalopathy need to rule out the cause probably due to dehydration improving slowly - Intractable nausea vomiting better - history of prostate cancer with metastases - History of hypertension - History of hyperlipidemia - History of anemia plan - We'll continue to monitor the patient's kidney functions - MRI of the brain was ordered which shows microvascular ischemic changes - We'll continue to monitor the patient's mental status - Continue her current home medications - Patient will probably be discharged tomorrow if cleared by hematology Time with Patient: Greater than 30
[2019-02-02] MEDS: MELATONIN 3 MG TABLET PO SCH (20:15)
[2019-02-02] MEDS: ATORVASTATIN 10 MG TAB PO SCH (20:15)
[2019-02-03 07:24] LABS: Basophils % (A) 0 %; Eosinophils % (A) 1 %; HCT 27.3 % (39.0-53.0); HGB 8.9 gm/dL (13.0-17.5); Lymphocytes # (A) 0.8 k/uL (1.0-4.8); Lymphocytes % (A) 11 %; MCH 31.8 pg (25.0-35.0); MCHC 32.7 g/dL (31.0-37.0); MCV 97.1 fL (80.0-100.0); Mean Platelet Volume 7.3; Monocytes # (A) 0.5 k/uL (0-1.0); Monocytes % (A) 7 %; Neutrophils # (A) 6.2 k/uL (1.3-7.7); Neutrophils % (A) 80 %; Platelet Count 188 k/uL (150-450); RBC 2.82 m/uL (4.30-5.90); RDW 14.9 % (11.5-15.5); WBC 7.7 k/uL (3.8-10.6)
[2019-02-03 07:35] LABS: Anion Gap 4 mmol/L; Blood Urea Nitrogen 12 mg/dL (9-20); Calcium 6.6 mg/dL (8.4-10.2); Carbon Dioxide 22 mmol/L (22-30); Chloride 106 mmol/L (98-107); Glucose 110 mg/dL (74-99); Potassium 4.3 mmol/L (3.5-5.1); Sodium 132 mmol/L (137-145)
[2019-02-03] MEDS: PANTOPRAZOLE 40 MG/10 ML VIAL IVP SCH (10:09)
[2019-02-03] MEDS: LISINOPRIL 10 MG TAB PO SCH (10:10)
[2019-02-03] MEDS: predniSONE 5 MG TAB PO SCH (10:10)
[2019-02-03] MEDS: GABAPENTIN 100 MG CAP PO SCH ×3 (10:10→20:18)
[2019-02-03] MEDS: MULTIVITAMINS, THERA 1 EACH TAB PO SCH (10:10)
[2019-02-03] MEDS: HEPARIN SODIUM,PORCINE 5,000 UNIT/ML 1 ML VIAL SQ SCH ×2 (10:10→20:18)
[2019-02-03] MEDS: ASPIRIN 81 MG PO SCH (10:10)
--- NOTE | 2019-02-03 12:54 | P.PN ---
Subjective 78-year-old gentleman with a history of prostate cancer with bony metastases, hypertension, hyperlipidemia comes in with weakness and nausea unable to keep anything down. Patient was thus admitted. Patient apparently was confused more than the baseline. on 02/02/2019 Patient apparently is better than before according to the and the cyanosis or the bedside. He still having some word finding difficulties. Patient does not complain of any chest pain racing heart, no cough no shortness breath. 02/03/2019 Patient was sleeping at the time examination. Work him up he looked alert oriented and slightly confused but better than yesterday He still weak on walking No chest pain or racing heart no cough no shortness of breath Objective - Vital Signs Vital signs: Vital Signs Temp 98.3 F 02/03/19 12:50 Pulse 76 02/03/19 12:50 Resp 16 02/03/19 12:50 BP 116/66 02/03/19 12:50 Pulse Ox 96 02/03/19 12:50 Intake & Output 02/02/19 02/03/19 02/03/19 18:59 06:59 18:59 Intake Total 1490 Output Total 2230 250 Balance -740 -250 Intake: Intake, IV Titration 50 Amount cefTRIAXone 1 gm In 50 Sodium Chloride 0.9% 50 ml @ 100 mls/hr IVPB Q24H [facility] Rx#:[id number] Oral 1440 Output: Urine 2230 250 Other: Voiding Method Urinal Urinal Urinal # Voids 4 3 # Bowel Movements 1 - Exam On exam, alert and oriented x2. He knew his name he no where he is but he does not know why he is here HEENT: Conjunctivae normal. eyes normal. NECK: No JVD. No thyroid enlargement. No LNs CARDIOVASCULAR: -S2 positive RESPIRATION: Breath sounds diminished in the bases. No rhonchi or crackles. No bronchial breathing. ABDOMEN: Soft, nontender . No guarding. no masses palpable. No ascites, No hepatosplenomegaly.Bowel sounds heard. LEGS: No edema. no swelling NERVOUS SYSTEM: Cranial N 2-12 grossly normal. Moves all 4 limbs. No focal deficits. No sensory deficit. No signs of cerebellar dysfucntion. Skin: no ulcer no rash - Labs CBC & Chem 7: 02/03/19 06:55 02/03/19 06:55 Labs: Abnormal Lab Results - Last 24 Hours (Table) 02/03/19 02/03/19 Range/Units 06:55 06:55 RBC 2.82 L (4.30-5.90) m/uL Hgb 8.9 L (13.0-17.5) gm/dL Hct 27.3 L (39.0-53.0) % Lymphocytes # 0.8 L (1.0-4.8) k/uL Sodium 132 L (137-145) mmol/L Creatinine 0.52 L (0.66-1.25) mg/dL Glucose 110 H (74-99) mg/dL Calcium 6.6 L (8.4-10.2) mg/dL Microbiology - Last 24 Hours (Table) 01/31/19 23:20 Blood Culture - Preliminary Blood No Growth after 48 hours 01/31/19 02:51 Urine Culture - Final Urine,Clean Catch Assessment and Plan Assessment: - acute encephalopathy need to rule out the cause probably due to dehydration im proving slowly - Intractable nausea vomiting better - history of prostate cancer with metastases - History of hypertension - History of hyperlipidemia - History of anemia plan 02/02/2019 - We'll continue to monitor the patient's kidney functions - MRI of the brain was ordered which shows microvascular ischemic changes - We'll continue to monitor the patient's mental status - Continue her current home medications - Patient will probably be discharged tomorrow if cleared by hematology 02/03/2019 - Patient's kidney functions are improving - We'll consult PT OT as the patient is too weak. He'll probably benefit from rehab placement - We'll continue rest of the medical care - We'll continue to monitor Time with Patient: Greater than 30
[2019-02-03] MEDS: ATORVASTATIN 10 MG TAB PO SCH (20:18)
[2019-02-03] MEDS: MELATONIN 3 MG TABLET PO SCH (20:18)
[2019-02-04 07:23] LABS: Basophils % (A) 0 %; Eosinophils % (A) 1 %; HCT 27.3 % (39.0-53.0); Lymphocytes # (A) 0.8 k/uL (1.0-4.8); Lymphocytes % (A) 10 %; MCH 32.4 pg (25.0-35.0); MCV 98.2 fL (80.0-100.0); Mean Platelet Volume 7.7; Monocytes # (A) 0.5 k/uL (0-1.0); Monocytes % (A) 7 %; Neutrophils # (A) 6.2 k/uL (1.3-7.7); Neutrophils % (A) 81 %; Platelet Count 171 k/uL (150-450); RBC 2.78 m/uL (4.30-5.90); RDW 15.2 % (11.5-15.5); WBC 7.6 k/uL (3.8-10.6)
[2019-02-04 07:39] LABS: Anion Gap 3 mmol/L; Blood Urea Nitrogen 12 mg/dL (9-20); Calcium 6.6 mg/dL (8.4-10.2); Carbon Dioxide 23 mmol/L (22-30); Chloride 107 mmol/L (98-107); Glucose 96 mg/dL (74-99); Potassium 4.5 mmol/L (3.5-5.1); Sodium 133 mmol/L (137-145)
[2019-02-04] MEDS: GABAPENTIN 100 MG CAP PO SCH ×3 (09:18→21:35)
[2019-02-04] MEDS: predniSONE 5 MG TAB PO SCH (09:18)
[2019-02-04] MEDS: HEPARIN SODIUM,PORCINE 5,000 UNIT/ML 1 ML VIAL SQ SCH ×2 (09:18→20:45)
[2019-02-04] MEDS: ASPIRIN 81 MG PO SCH (09:18)
[2019-02-04] MEDS: MULTIVITAMINS, THERA 1 EACH TAB PO SCH (09:18)
[2019-02-04] MEDS: LISINOPRIL 10 MG TAB PO SCH (09:18)
[2019-02-04] MEDS: PANTOPRAZOLE 40 MG/10 ML VIAL IVP SCH (11:16)
[2019-02-04] MEDS: PANTOPRAZOLE 40 MG TABLET PO SCH (12:00)
--- NOTE | 2019-02-04 14:11 | P.PN ---
Subjective 78-year-old gentleman with a history of prostate cancer with bony metastases, hypertension, hyperlipidemia comes in with weakness and nausea unable to keep anything down. Patient was thus admitted. Patient apparently was confused more than the baseline. on 02/02/2019 Patient apparently is better than before according to the and the cyanosis or the bedside. He still having some word finding difficulties. Patient does not complain of any chest pain racing heart, no cough no shortness breath. 02/03/2019 Patient was sleeping at the time examination. Work him up he looked alert oriented and slightly confused but better than yesterday He still weak on walking No chest pain or racing heart no cough no shortness of breath 02/04/2019 There is still complaining of nausea. Complains of abdominal pain around the site of the insertion of the PEG tube Objective - Vital Signs Vital signs: Vital Signs Temp 99.0 F 02/04/19 11:48 Pulse 86 02/04/19 11:48 Resp 16 02/04/19 11:48 BP 102/58 02/04/19 11:48 Pulse Ox 95 02/04/19 11:48 Intake & Output 02/03/19 02/04/19 02/04/19 18:59 06:59 18:59 Output Total 350 Balance -350 Output: Urine 350 Other: Voiding Method Urinal Urinal Urinal # Voids 1 3 # Bowel Movements 2 - Exam On exam, alert and oriented x2. He knew his name he no where he is but he does not know why he is here HEENT: Conjunctivae normal. eyes normal. NECK: No JVD. No thyroid enlargement. No LNs CARDIOVASCULAR: -S2 positive RESPIRATION: Breath sounds diminished in the bases. No rhonchi or crackles. No bronchial breathing. ABDOMEN: Soft, nontender . No guarding. no masses palpable. No ascites, No hepatosplenomegaly.Bowel sounds heard. LEGS: No edema. no swelling NERVOUS SYSTEM: Cranial N 2-12 grossly normal. Moves all 4 limbs. No focal deficits. No sensory deficit. No signs of cerebellar dysfucntion. Skin: no ulcer no rash - Labs CBC & Chem 7: 02/04/19 06:42 02/04/19 06:42 Labs: Abnormal Lab Results - Last 24 Hours (Table) 02/04/19 02/04/19 Range/Units 06:42 06:42 RBC 2.78 L (4.30-5.90) m/uL Hgb 9.0 L (13.0-17.5) gm/dL Hct 27.3 L (39.0-53.0) % Lymphocytes # 0.8 L (1.0-4.8) k/uL Sodium 133 L (137-145) mmol/L Creatinine 0.55 L (0.66-1.25) mg/dL Calcium 6.6 L (8.4-10.2) mg/dL Microbiology - Last 24 Hours (Table) 01/31/19 23:20 Blood Culture - Preliminary Blood No Growth after 72 hours Assessment and Plan Assessment: - acute encephalopathy need to rule out the cause probably due to dehydration improving slowly - Intractable nausea vomiting better - history of prostate cancer with metastases - History of hypertension - History of hyperlipidemia - History of anemia plan 02/02/2019 - We'll continue to monitor the patient's kidney functions - MRI of the brain was ordered which shows microvascular ischemic changes - We'll continue to monitor the patient's mental status - Continue her current home medications - Patient will probably be discharged tomorrow if cleared by hematology 02/03/2019 - Patient's kidney functions are improving - We'll consult PT OT as the patient is too weak. He'll probably benefit from rehab placement - We'll continue rest of the medical care - We'll continue to monitor 02/04/2019 We'll change his antinausea medications namely Zofran and Reglan to oral and see how he does Advise him to not to take a lot of oral intake and then reduce the PEG tube feeding and gradually adjusted so that his nausea is better Patient really scared to go home as he still nauseous and says that he stays home and doesn't know what to do if he starts having the nausea and vomiting. I showed him that is probably because of his to feeds and his oral intake as well. He will reduce the oral intake and reduce the rate of tube feeding. We will also change the IV antinausea medication to oral. We'll follow up on him Time with Patient: Less than 30
--- NOTE | 2019-02-04 14:14 | P.PN ---
Subjective 78-year-old gentleman with a history of prostate cancer with bony metastases, hypertension, hyperlipidemia comes in with weakness and nausea unable to keep anything down. Patient was thus admitted. Patient apparently was confused more than the baseline. on 02/02/2019 Patient apparently is better than before according to the and the cyanosis or the bedside. He still having some word finding difficulties. Patient does not complain of any chest pain racing heart, no cough no shortness breath. 02/03/2019 Patient was sleeping at the time examination. Work him up he looked alert oriented and slightly confused but better than yesterday He still weak on walking No chest pain or racing heart no cough no shortness of breath 02/04/2019 Patient was sitting on the chair and onto his son Was no complaints No chest pain or racing heart no cough no shortness of breath Objective - Vital Signs Vital signs: Vital Signs Temp 99.0 F 02/04/19 11:48 Pulse 86 02/04/19 11:48 Resp 16 02/04/19 11:48 BP 102/58 02/04/19 11:48 Pulse Ox 95 02/04/19 11:48 Intake & Output 02/03/19 02/04/19 02/04/19 18:59 06:59 18:59 Output Total 350 Balance -350 Output: Urine 350 Other: Voiding Method Urinal Urinal Urinal # Voids 1 3 # Bowel Movements 2 - Exam On exam, alert and oriented x2. He knew his name he no where he is but he does not know why he is here HEENT: Conjunctivae normal. eyes normal. NECK: No JVD. No thyroid enlargement. No LNs CARDIOVASCULAR: -S2 positive RESPIRATION: Breath sounds diminished in the bases. No rhonchi or crackles. No bronchial breathing. ABDOMEN: Soft, nontender . No guarding. no masses palpable. No ascites, No hepatosplenomegaly.Bowel sounds heard. LEGS: No edema. no swelling NERVOUS SYSTEM: Cranial N 2-12 grossly normal. Moves all 4 limbs. No focal deficits. No sensory deficit. No signs of cerebellar dysfucntion. Skin: no ulcer no rash - Labs CBC & Chem 7: 02/04/19 06:42 02/04/19 06:42 Labs: Abnormal Lab Results - Last 24 Hours (Table) 02/04/19 02/04/19 Range/Units 06:42 06:42 RBC 2.78 L (4.30-5.90) m/uL Hgb 9.0 L (13.0-17.5) gm/dL Hct 27.3 L (39.0-53.0) % Lymphocytes # 0.8 L (1.0-4.8) k/uL Sodium 133 L (137-145) mmol/L Creatinine 0.55 L (0.66-1.25) mg/dL Calcium 6.6 L (8.4-10.2) mg/dL Microbiology - Last 24 Hours (Table) 01/31/19 23:20 Blood Culture - Preliminary Blood No Growth after 72 hours Assessment and Plan Assessment: - acute encephalopathy need to rule out the cause probably due to dehydration improving slowly - Intractable nausea vomiting better - history of prostate cancer with metastases - History of hypertension - History of hyperlipidemia - History of anemia plan 02/02/2019 - We'll continue to monitor the patient's kidney functions - MRI of the brain was ordered which shows microvascular ischemic changes - We'll continue to monitor the patient's mental status - Continue her current home medications - Patient will probably be discharged tomorrow if cleared by hematology 02/03/2019 - Patient's kidney functions are improving - We'll consult PT OT as the patient is too weak. He'll probably benefit from rehab placement - We'll continue rest of the medical care - We'll continue to monitor 02/04/2019 - Continue to monitor. Kidney functions improving - PTOT worked in on the patient. Patient will probably go to rehab - Continue rest of the medical care
[2019-02-04] MEDS: traMADol 50 MG TAB PO PRN (19:20)
[2019-02-04] MEDS: ATORVASTATIN 10 MG TAB PO SCH (20:45)
[2019-02-04] MEDS: MELATONIN 3 MG TABLET PO SCH (20:45)
[2019-02-05 06:49] LABS: Basophils % (A) 0 %; Eosinophils # (A) 0.1 k/uL (0-0.7); Eosinophils % (A) 1 %; HCT 29.3 % (39.0-53.0); HGB 9.7 gm/dL (13.0-17.5); Lymphocytes # (A) 0.9 k/uL (1.0-4.8); Lymphocytes % (A) 9 %; MCH 32.2 pg (25.0-35.0); MCV 97.4 fL (80.0-100.0); Mean Platelet Volume 7.7; Monocytes # (A) 0.5 k/uL (0-1.0); Monocytes % (A) 5 %; Neutrophils # (A) 8.4 k/uL (1.3-7.7); Neutrophils % (A) 84 %; Platelet Count 200 k/uL (150-450); RBC 3.01 m/uL (4.30-5.90); RDW 15.1 % (11.5-15.5)
[2019-02-05 07:00] LABS: Anion Gap 3 mmol/L; Blood Urea Nitrogen 13 mg/dL (9-20); Calcium 6.6 mg/dL (8.4-10.2); Carbon Dioxide 24 mmol/L (22-30); Chloride 105 mmol/L (98-107); Glucose 103 mg/dL (74-99); Potassium 4.6 mmol/L (3.5-5.1); Sodium 132 mmol/L (137-145)
[2019-02-05] MEDS: predniSONE 5 MG TAB PO SCH (08:33)
[2019-02-05] MEDS: MULTIVITAMINS, THERA 1 EACH TAB PO SCH (08:33)
[2019-02-05] MEDS: PANTOPRAZOLE 40 MG TABLET PO SCH (08:33)
[2019-02-05] MEDS: HEPARIN SODIUM,PORCINE 5,000 UNIT/ML 1 ML VIAL SQ SCH ×2 (08:33→20:32)
[2019-02-05] MEDS: LISINOPRIL 10 MG TAB PO SCH (08:33)
[2019-02-05] MEDS: ASPIRIN 81 MG PO SCH (08:33)
[2019-02-05] MEDS: GABAPENTIN 100 MG CAP PO SCH ×3 (08:33→20:32)
--- NOTE | 2019-02-05 19:55 | P.PN ---
Subjective 78-year-old gentleman with a history of prostate cancer with bony metastases, hypertension, hyperlipidemia comes in with weakness and nausea unable to keep anything down. Patient was thus admitted. Patient apparently was confused more than the baseline. on 02/02/2019 Patient apparently is better than before according to the and the cyanosis or the bedside. He still having some word finding difficulties. Patient does not complain of any chest pain racing heart, no cough no shortness breath. 02/03/2019 Patient was sleeping at the time examination. Work him up he looked alert oriented and slightly confused but better than yesterday He still weak on walking No chest pain or racing heart no cough no shortness of breath 02/04/2019 Patient was sitting on the chair and onto his son Was no complaints No chest pain or racing heart no cough no shortness of breath 02/05 Pt was lying on the bed,seems confused but alert and oriented. no chest pain, no racing heart no sob, no cough Objective - Vital Signs Vital signs: Vital Signs Temp 98.2 F 02/05/19 05:00 Pulse 89 02/05/19 16:35 Resp 16 02/05/19 16:35 BP 112/57 02/05/19 05:00 Pulse Ox 96 02/05/19 05:00 Intake & Output 02/05/19 02/05/19 02/06/19 06:59 18:59 06:59 Intake Total 720 Output Total 510 520 Balance 210 -520 Intake: Oral 720 Output: Urine 510 520 Other: Voiding Method Urinal Urinal # Voids 1 1 # Bowel Movements 1 - Exam On exam, alert and oriented x2. He knew his name he no where he is but he does not know why he is here HEENT: Conjunctivae normal. eyes normal. NECK: No JVD. No thyroid enlargement. No LNs CARDIOVASCULAR: -S2 positive RESPIRATION: Breath sounds diminished in the bases. No rhonchi or crackles. No bronchial breathing. ABDOMEN: Soft, nontender . No guarding. no masses palpable. No ascites, No hepatosplenomegaly.Bowel sounds heard. LEGS: No edema. no swelling NERVOUS SYSTEM: Cranial N 2-12 grossly normal. Moves all 4 limbs. No focal deficits. No sensory deficit. No signs of cerebellar dysfucntion. Skin: no ulcer no rash - Labs CBC & Chem 7: 02/05/19 06:34 02/05/19 06:34 Labs: Abnormal Lab Results - Last 24 Hours (Table) 02/05/19 02/05/19 Range/Units 06:34 06:34 RBC 3.01 L (4.30-5.90) m/uL Hgb 9.7 L (13.0-17.5) gm/dL Hct 29.3 L (39.0-53.0) % Neutrophils # 8.4 H (1.3-7.7) k/uL Lymphocytes # 0.9 L (1.0-4.8) k/uL Sodium 132 L (137-145) mmol/L Creatinine 0.55 L (0.66-1.25) mg/dL Glucose 103 H (74-99) mg/dL Calcium 6.6 L (8.4-10.2) mg/dL Microbiology - Last 24 Hours (Table) 01/31/19 23:20 Blood Culture - Preliminary Blood No Growth after 96 hours Assessment and Plan Assessment: - acute encephalopathy need to rule out the cause probably due to dehydration improving slowly - Intractable nausea vomiting better - history of prostate cancer with metastases - History of hypertension - History of hyperlipidemia - History of anemia plan 02/02/2019 - We'll continue to monitor the patient's kidney functions - MRI of the brain was ordered which shows microvascular ischemic changes - We'll continue to monitor the patient's mental status - Continue her current home medications - Patient will probably be discharged tomorrow if cleared by hematology 02/03/2019 - Patient's kidney functions are improving - We'll consult PT OT as the patient is too weak. He'll probably benefit from rehab placement - We'll continue rest of the medical care - We'll continue to monitor 02/04/2019 - Continue to monitor. Kidney functions improving - PTOT worked in on the patient. Patient will probably go to rehab - Continue rest of the medical care 02/05/19 - Awaiting placement, unable to care the patient in this situation - continue rest of the medical care - discussed woth family in detail regarding further care of the patient in terms of cancer treatment and suggested further discussing with hem/onc - family showed understanding - Will conitnue to moniro - Time with Patient: Greater than 30
[2019-02-05] MEDS: ATORVASTATIN 10 MG TAB PO SCH (20:32)
[2019-02-05] MEDS: MELATONIN 3 MG TABLET PO SCH (20:32)
[2019-02-06 07:28] LABS: Basophils % (A) 0 %; Eosinophils # (A) 0.1 k/uL (0-0.7); Eosinophils % (A) 1 %; HCT 26.4 % (39.0-53.0); HGB 8.6 gm/dL (13.0-17.5); Lymphocytes # (A) 0.7 k/uL (1.0-4.8); Lymphocytes % (A) 8 %; MCH 31.7 pg (25.0-35.0); MCHC 32.4 g/dL (31.0-37.0); MCV 97.8 fL (80.0-100.0); Mean Platelet Volume 7.7; Monocytes # (A) 0.5 k/uL (0-1.0); Monocytes % (A) 6 %; Neutrophils # (A) 7.3 k/uL (1.3-7.7); Neutrophils % (A) 83 %; Platelet Count 200 k/uL (150-450); RDW 14.9 % (11.5-15.5); WBC 8.7 k/uL (3.8-10.6)
[2019-02-06 07:50] LABS: Anion Gap 5 mmol/L; Blood Urea Nitrogen 15 mg/dL (9-20); Carbon Dioxide 24 mmol/L (22-30); Chloride 102 mmol/L (98-107); Glucose 103 mg/dL (74-99); Potassium 4.5 mmol/L (3.5-5.1); Sodium 131 mmol/L (137-145)
[2019-02-06 08:10] LABS: Calcium 6.2 mg/dL (8.4-10.2)
[2019-02-06] MEDS: GABAPENTIN 100 MG CAP PO SCH ×3 (08:39→20:54)
[2019-02-06] MEDS: MULTIVITAMINS, THERA 1 EACH TAB PO SCH (08:39)
[2019-02-06] MEDS: LISINOPRIL 10 MG TAB PO SCH (08:39)
[2019-02-06] MEDS: predniSONE 5 MG TAB PO SCH (08:39)
[2019-02-06] MEDS: PANTOPRAZOLE 40 MG TABLET PO SCH (08:40)
[2019-02-06] MEDS: ASPIRIN 81 MG PO SCH (08:40)
[2019-02-06] MEDS: HEPARIN SODIUM,PORCINE 5,000 UNIT/ML 1 ML VIAL SQ SCH ×2 (08:40→19:17)
--- NOTE | 2019-02-06 14:17 | P.PN ---
Subjective Progress Note Date: 02/06/19 Principal diagnosis: Altered mental status, metastatic prostate cancer Patient is seen today in follow-up with his at the bedside and son. Patient was lucid through most of our conversation, a few unexpected comments that did not fit the discussion, patient was not agitated or irritated, no current complaints of leg pain, patient did get up with 1 person assist and used a wheeled walker to the bathroom. Appetite is poor, nothing tastes good, vomiting last week but none since, no shortness of breath, chest pain, fevers, abdominal pain or discomfort, he states a bowel movement yesterday, denies any bleeding, lower extremity swelling. Objective - Vital Signs Vital signs: Vital Signs Temp 98 F 02/06/19 13:00 Pulse 91 02/06/19 13:00 Resp 17 02/06/19 13:00 BP 108/56 02/06/19 13:00 Pulse Ox 98 02/06/19 13:00 Intake & Output 02/05/19 02/06/19 02/06/19 18:59 06:59 18:59 Output Total 520 Balance -520 Weight 88.451 kg Output: Urine 520 Other: Voiding Method Urinal Urinal Toilet Urinal # Voids 1 2 2 # Bowel Movements 1 1 - Constitutional General appearance: Present: average body habitus, cooperative, no acute distress - EENT Eyes: Present: anicteric sclerae, EOMI ENT: Present: hearing grossly normal, normal oropharynx - Respiratory Respiratory: bilateral: CTA - Cardiovascular Heart sounds: normal: S1, S2 - Peripheral edema leg Peripheral Edema: bilateral: Trace - Gastrointestinal General gastrointestinal: Present: normal bowel sounds, soft - Integumentary Integumentary: Present: pale - Neurologic Neurologic: Present: CNII-XII intact - Musculoskeletal Musculoskeletal: Present: strength equal bilaterally - Psychiatric Psychiatric: Present: A&O x's 3, appropriate affect - Labs CBC & Chem 7: 02/06/19 06:37 02/06/19 06:37 Labs: Abnormal Lab Results - Last 24 Hours (Table) 02/06/19 02/06/19 Range/Units 06:37 06:37 RBC 2.70 L (4.30-5.90) m/uL Hgb 8.6 L (13.0-17.5) gm/dL Hct 26.4 L (39.0-53.0) % Lymphocytes # 0.7 L (1.0-4.8) k/uL Sodium 131 L (137-145) mmol/L Creatinine 0.59 L (0.66-1.25) mg/dL Glucose 103 H (74-99) mg/dL Calcium 6.2 L* (8.4-10.2) mg/dL Microbiology - Last 24 Hours (Table) 01/31/19 23:20 Blood Culture - Preliminary Blood No Growth after 120 hours - Imaging and Cardiology MRI - head: report reviewed Assessment and Plan (1) Altered mental state Narrative/Plan: Sincerely slowly improving but, patient's symptoms are definitely worse at night. He reports by staff that at night patient is having hallucinations and behaving out of character. Patient denies any knowledge of these behaviors or hallucinations. We did review MRI of the brain which is negative for any metastatic disease. We have discussed with the family on several occasions, even prior to admission, concerns for an underlying dementia. When asked if the treatment caused dementia it was reviewed that it is not a well documented side effect and chemo is not known to cause dementia but, dementia symptoms could certainly be exacerbated when a patient is weakened by cancer, chemotherapy, dehydrated, lacking proper nutrition etc. Patient's mental status is stable, only slightly improved from admission at this time. Anticipate need for rehabilitation Current Visit: Yes Status: Acute Priority: High Code(s): R41.82 - ALTERED MENTAL STATUS, UNSPECIFIED SNOMED Code(s): 467633777 (2) Prostate CA Narrative/Plan: Patient and family are very concerned about pursuing any further treatment for metastatic prostate cancer, especially due to the symptoms he has been experiencing the last several treatments. We are planning a meeting for tomorro w to discuss recent CT results, review Primary Oncologist opinion. PSA was ordered on the but, I do not see a completed result, this will be ordered again today. Current Visit: Yes Status: Acute Priority: High Code(s): C61 - MALIGNANT NEOPLASM OF PROSTATE SNOMED Code(s): 143893983 Time with Patient: Greater than 30 (Greater than 35 minutes spent, greater than 50% of time counseling and coordinating care)
[2019-02-06] MEDS: MELATONIN 3 MG TABLET PO SCH (19:16)
[2019-02-06] MEDS: traMADol 50 MG TAB PO PRN (19:16)
[2019-02-06] MEDS: ATORVASTATIN 10 MG TAB PO SCH (19:17)
[2019-02-07] MEDS: LISINOPRIL 10 MG TAB PO SCH (09:31)
[2019-02-07] MEDS: HEPARIN SODIUM,PORCINE 5,000 UNIT/ML 1 ML VIAL SQ SCH (09:31)
[2019-02-07] MEDS: GABAPENTIN 100 MG CAP PO SCH ×2 (09:32→17:40)
[2019-02-07] MEDS: MULTIVITAMINS, THERA 1 EACH TAB PO SCH (09:32)
[2019-02-07] MEDS: PANTOPRAZOLE 40 MG TABLET PO SCH (09:32)
[2019-02-07] MEDS: ASPIRIN 81 MG PO SCH (09:32)
[2019-02-07] MEDS: predniSONE 5 MG TAB PO SCH (09:34)
[2019-02-07 12:09] VITALS: BP 109/58; PULSE 78; RESP 18; TEMP 97.9
--- NOTE | 2019-02-07 12:39 | P.PN ---
Subjective Progress Note Date: 02/07/19 Principal diagnosis: Altered mental status, metastatic prostate cancer Patient is seen before his was available, he told me he ate most of his breakfast, complained of leg discomfort, had difficulty describing the discomfort, he called it "17". Patient commented that he wanted out of the hospital. Later we followed-up with his , and then later his son. Objective - Vital Signs Vital signs: Vital Signs Temp 96.7 F L 02/07/19 05:00 Pulse 89 02/07/19 05:00 Resp 16 02/07/19 05:00 BP 123/61 02/07/19 05:00 Pulse Ox 97 02/07/19 05:00 Intake & Output 02/06/19 02/07/19 02/07/19 18:59 06:59 18:59 Intake Total 1130 1770 Balance 1130 1770 Weight 88.451 kg Intake: Oral 1130 1770 Other: Voiding Method Toilet Toilet Toilet Urinal Urinal Urinal # Voids 2 3 # Bowel Movements 2 1 - Constitutional General appearance: Present: cooperative, no acute distress, obese - EENT Eyes: Present: anicteric sclerae, EOMI ENT: Present: hard of hearing - Respiratory Details: Respirations even and unlabored - Cardiovascular Details: Skin warm and dry, mild bilateral pedal edema - Integumentary Integumentary: Present: pale - Musculoskeletal Musculoskeletal: Present: generalized weakness - Psychiatric Psychiatric Comment(s): Alert and oriented 3 initially, later on patient was asleep and snoring during our discussion - Labs CBC & Chem 7: 02/06/19 06:37 02/06/19 06:37 Labs: Abnormal Lab Results - Last 24 Hours (Table) 02/02/19 Range/Units 08:26 Total PSA >150.0 H (<=4.0) ng/mL Microbiology - Last 24 Hours (Table) 01/31/19 23:20 Blood Culture - Final Blood No Growth after 144 hours Assessment and Plan (1) Altered mental state Narrative/Plan: Persistent symptoms. Patient's mental status is stable, only slightly improved from admission at this time. Current Visit: Yes Status: Acute Priority: High Code(s): R41.82 - ALTERED MENTAL STATUS, UNSPECIFIED SNOMED Code(s): 679801019 (2) Prostate CA Narrative/Plan: Dr. Cavazos listened to patient's 's concerns, she is concerned that if he receives any more chemotherapy his mental status is going to continue to decline further and she is currently unable to manage him at home. Unfortunately, we cannot be certain if chemotherapy exacerbated an underlying dementia but, it is a legitimate concern. Futher treatment could cause futher decline. Patient has only had 1 cycle of the Jevtana so, its effects would not be apparent. Dose was given on 01/12, PSA was 159 on 01/05, 01/31 PSA was 369. This is expected, PSA conrado elevate post-treatment after the first 1-2 cycles. So, this is not a fair indicator at this time of whether treatment is working. Patient's PSA is currently documented at greater than 150. Patient's also had concerns about being able to care for him at home and, if that is the case, patient would require skilled facility care and chemotherapy is not an option in that situation. Patient's has requested discussion with case management to see what her options are, there are financial concerns. We will await her decision and assist her and the patient in what they need. Anticipate discharge in the next 24 hours. Current Visit: Yes Status: Acute Priority: High Code(s): C61 - MALIGNANT NEOPLASM OF PROSTATE SNOMED Code(s): 327275601 Plan: Doctor attests: I performed a history and physical examination of this patient with dictator. I developed impression and plan, I agree with dictators note, documented as a scribe. Time with Patient: Greater than 30
--- NOTE | 2019-02-08 12:19 | CDI ---
Documentation Clarification Form Date: 02/08/19 From: Eliana Mcdonough Phone: If questions call Michelle Adorno @ [phone], Hours-8:30 am & 5 pm M- F Admit Date: 01/31/2019 1:01:00 PM Patient Name: Ramon Vasquez Visit Number: [id number] Discharge Date: 02/07/2019 5:35:00 PM ATTENTION: The Clinical Documentation Specialists (CDI) and [facility] Coding Staff appreciate your assistance in clarifying documentation. Please respond to the clarification below the line at the bottom and electronically sign. The CDI & [facility] Coding staff will review the response and follow-up if needed. Please note: Queries are made part of the Legal Health Record. If you have any questions, please contact the author of this message via ITS. Dr. Toby Gillette Documentation states: hypomagnesemia History/Risk Factors: prostate ca w bone mets, dehydration, diarrhea due to chemo Lab: Mg - 2.4 (H) Treatment: IV fluids Clinical significance of diagnostic testing and treatment CANNOT be assumed or coded without physician documentation of significance if any. Please clarify what abnormal laboratory signifies: hypermagnesemia hypomagnesemia Unable to determine Other, please specify hypermagnesemia MTDD
== END 2019-02-07 17:35 | disposition home or self-care (01) | DRG 391 ==
LOC: EC 10:51 → 3NMEDONC 13:01
PROVIDERS: ADMIT Hospitalist; ATTEND Hospitalist
DX: K29.00 Acute gastritis without bleeding (principal); G93.41 Metabolic encephalopathy; C79.51 Secondary malignant neoplasm of bone; E87.1 Hypo-osmolality and hyponatremia; K52.1 Toxic gastroenteritis and colitis; E86.0 Dehydration; E87.5 Hyperkalemia; G62.9 Polyneuropathy, unspecified; E83.39 Other disorders of phosphorus metabolism; E83.42 Hypomagnesemia; C61 Malignant neoplasm of prostate; D64.9 Anemia, unspecified; F03.90 Unspecified dementia, unspecified severity, without behavioral disturbance, psychotic disturbance, mood disturbance, and anxiety; T45.1X5A Adverse effect of antineoplastic and immunosuppressive drugs, initial encounter; E78.5 Hyperlipidemia, unspecified; I10 Essential (primary) hypertension; G25.81 Restless legs syndrome; Z79.82 Long term (current) use of aspirin; Z79.52 Long term (current) use of systemic steroids; Z79.899 Other long term (current) drug therapy; Z87.891 Personal history of nicotine dependence
CPT/HCPCS: 36415; 70450; 70553; 71046; 80048; 80053; 81001; 82140; 83605; 83735; 84100; 84153; 84443; 84484; 85025; 85610; 85730; 87040; 87086; 93005; 94760; 96361; 96374; 96375; 99285

== ENCOUNTER 2019-02-19 12:55 | Observation (INO) | payer MEDICARE, BC ==
[2019-02-19] MEDS ORDERED: SODIUM CHLORIDE 0.9% 1,000 ML IV STA (15:29)
--- NOTE | 2019-02-19 15:48 | ED ---
General Adult HPI <Jimmy Flores - Last Filed: 02/19/19 18:23> - General Source: patient Mode of arrival: ambulatory <Dinorah Espana - Last Filed: 02/19/19 19:26> - General Chief complaint: Fall Stated complaint: fall/hit head & shoulder Time Seen by Provider: 02/19/19 15:03 - History of Present Illness Initial comments: Patient is a 78-year-old male with history of prostate cancer with bony metastases, hypertension, hyperlipidemia who presents to the emergency Department with complaints of lightheadedness and falling 3 times in the last 2 days. Patient states he was recently in the hospital for dehydration. Family states they have recently stopped chemo treatment for his prostate cancer. Patient denies any pain however states when he does walk his left lower leg does hurt and will give out. Patient denies headache, chest pain, difficult breathing, nausea, vomiting, abdominal pain. (Dinorah Espana) - Related Data Home Medications Medication Instructions Recorded Confirmed Aspirin EC [Ecotrin Low Dose] 81 mg PO DAILY 01/31/19 02/19/19 Calcium Carbonate/Vitamin D3 1 tab PO DAILY 01/31/19 02/19/19 [Calcium 600-Vit D3 200 Tablet] Gabapentin [Neurontin] 200 mg PO TID 01/31/19 02/19/19 Lisinopril [Zestril] 10 mg PO DAILY 01/31/19 02/19/19 Multivitamins, Thera [Multivitamin 1 tab PO DAILY 01/31/19 02/19/19 (formulary)] Tiller-3 Fatty Acids [Tiller-3] 1,000 mg PO DAILY 01/31/19 02/19/19 Prochlorperazine [Compazine] 10 mg PO Q6H PRN 01/31/19 02/19/19 Simvastatin [Zocor] 10 mg PO HS 01/31/19 02/19/19 rOPINIRole HCL [Requip] 0.5 mg PO HS 01/31/19 02/19/19 traMADol HCl [Ultram] 50 mg PO Q6H PRN 01/31/19 02/19/19 Allergies Allergy/AdvReac Type Severity Reaction Status Date / Time No Known Allergies Allergy Verified 02/19/19 16:43 Review of Systems ROS Other: All systems not noted in ROS Statement are negative. <Jimmy Flores - Last Filed: 02/19/19 18:23> ROS Other: All systems not noted in ROS Statement are negative. <Dinorah Espana - Last Filed: 02/19/19 19:26> ROS Statement: Those systems with pertinent positive or pertinent negative responses have been documented in the HPI. Past Medical History Past Medical History: Cancer, Hyperlipidemia, Hypertension Additional Past Medical History / Comment(s): PROSTATE CANCER- METASTASIS TO BONES, Restless leg syndrome History of Any Multi-Drug Resistant Organisms: None Reported Past Surgical History: Prostate Surgery Additional Past Surgical History / Comment(s): Tumor removed from neck x2, Chemotherapy 3 weeks ago Past Anesthesia/Blood Transfusion Reactions: No Reported Reaction Past Psychological History: No Psychological Hx Reported Smoking Status: Former smoker Past Alcohol Use History: None Reported Past Drug Use History: None Reported <Dinorah Espana - Last Filed: 02/19/19 19:26> General Exam <Dinorah Espana - Last Filed: 02/19/19 19:26> - General Exam Comments Initial Comments: GENERAL: Well-appearing and in no acute distress, although looks fatigued. HEAD: Atraumatic, normocephalic. EYES: Pupils equal round and reactive to light, extraocular movements intact, sclera anicteric, conjunctiva are normal. ENT: TMs normal, nares patent, oropharynx clear without exudates. Moist mucous membranes. NECK: Normal range of motion, supple without lymphadenopathy or JVD. LUNGS: Breath sounds clear to auscultation bilaterally and equal. No wheezes rales or rhonchi. HEART: Regular rate and rhythm without murmurs, rubs or gallops. ABDOMEN: Soft, nontender, normoactive bowel sounds. No guarding, no rebound. No masses appreciated. : Deferred EXTREMITIES: 3+ pitting edema in the left lower leg/foot, no pain with palpation. NEUROLOGICAL: Cranial nerves II through XII grossly intact. Normal speech, normal gait. PSYCH: Normal mood, normal affect. SKIN: Warm, Dry, normal turgor, no rashes or lesions noted. (Dinorah Espana) Course Vital Signs 02/19/19 02/19/19 13:54 16:26 Temperature 97.9 F Pulse Rate 86 78 Respiratory 18 18 Rate Blood Pressure 101/63 104/53 O2 Sat by Pulse 96 97 Oximetry Medical Decision Making - Lab Data Result diagrams: 02/19/19 16:16 02/19/19 16:16 <Jimmy Flores - Last Filed: 02/19/19 18:23> - Lab Data Result diagrams: 02/19/19 16:16 02/19/19 16:16 <Dinorah Espana - Last Filed: 02/19/19 19:26> - Medical Decision Making The patient was seen and examined. All diagnostics were reviewed. The case is discussed with Dr. Lind who is agreeable with admission. The case was discussed with the PA and I agree with the findings as documented. (Jimmy Flores) Patient is a 78-year-old male complaining of weakness/fatigue 2-3 days. Dionicio ramos has prostate cancer with bony metastases and recently stopped chemo treatments. Patient's family states he has been weak and has fallen 3 times in the last 2 days. He was recently hospitalized for dehydration. Exam was within normal limits except for 3+ pitting edema of the left lower extremity. Case was is discussed with Dr. Flores and patient will be admitted with Dr. lind. (Dinorah Espana) - Lab Data Lab Results 02/19/19 02/19/19 02/19/19 Range/Units 16:16 16:16 17:34 WBC 9.1 (3.8-10.6) k/uL RBC 3.24 L (4.30-5.90) m/uL Hgb 10.0 L (13.0-17.5) gm/dL Hct 30.7 L (39.0-53.0) % MCV 94.8 (80.0-100.0) fL MCH 30.8 (25.0-35.0) pg MCHC 32.5 (31.0-37.0) g/dL RDW 16.1 H (11.5-15.5) % Plt Count 359 (150-450) k/uL Neutrophils % 82 % Lymphocytes % 11 % Monocytes % 5 % Eosinophils % 1 % Basophils % 0 % Neutrophils # 7.5 (1.3-7.7) k/uL Lymphocytes # 1.0 (1.0-4.8) k/uL Monocytes # 0.4 (0-1.0) k/uL Eosinophils # 0.1 (0-0.7) k/uL Basophils # 0.0 (0-0.2) k/uL Hypochromasia Slight Anisocytosis Slight Sodium 137 (137-145) mmol/L Potassium 5.1 (3.5-5.1) mmol/L Chloride 109 H (98-107) mmol/L Carbon Dioxide 23 (22-30) mmol/L Anion Gap 5 mmol/L BUN 25 H (9-20) mg/dL Creatinine 0.87 (0.66-1.25) mg/dL Est GFR (CKD-EPI)AfAm >90 (>60 ml/min/1.73 sqM) Est GFR (CKD-EPI)NonAf 82 (>60 ml/min/1.73 sqM) Glucose 93 (74-99) mg/dL Calcium 7.6 L (8.4-10.2) mg/dL Total Bilirubin 0.3 (0.2-1.3) mg/dL AST 131 H (17-59) U/L ALT 42 (21-72) U/L Alkaline Phosphatase 278 H (38-126) U/L Total Protein 5.4 L (6.3-8.2) g/dL Albumin 2.8 L (3.5-5.0) g/dL Urine Color Yellow Urine Appearance Cloudy (Clear) Urine pH 5.5 (5.0-8.0) Ur Specific [place] 1.026 (1.001-1.035) Urine Protein 2+ H (Negative) Urine Glucose (UA) Negative (Negative) Urine Ketones 1+ H (Negative) Urine Blood Negative (Negative) Urine Nitrite Negative (Negative) Urine Bilirubin Negative (Negative) Urine Urobilinogen <2.0 (<2.0) mg/dL Ur Leukocyte Esterase Negative (Negative) Urine RBC 1 (0-5) /hpf Urine WBC 1 (0-5) /hpf Amorphous Sediment Rare H (None) /hpf Urine Mucus Many H (None) /hpf Disposition <Jimmy Flores - Last Filed: 02/19/19 18:23> Is patient prescribed a controlled substance at d/c from ED?: No <Dinorah Espana - Last Filed: 02/19/19 19:26> Clinical Impression: Dehydration, Weakness, Fall Disposition: ADMITTED IP TO THIS HOSP Condition: Stable Instructions (If sedation given, give patient instructions): Fall Prevention for Older Adults (ED) Referrals: [facility],Clinic [Primary Care Provider] - 1-2 days
[2019-02-19 16:27] LABS: Anisocytosis Slight; Basophils % (A) 0 %; Eosinophils # (A) 0.1 k/uL (0-0.7); Eosinophils % (A) 1 %; HCT 30.7 % (39.0-53.0); Hypochromasia Slight; Lymphocytes % (A) 11 %; MCH 30.8 pg (25.0-35.0); MCHC 32.5 g/dL (31.0-37.0); MCV 94.8 fL (80.0-100.0); Mean Platelet Volume 7.5; Monocytes # (A) 0.4 k/uL (0-1.0); Monocytes % (A) 5 %; Neutrophils # (A) 7.5 k/uL (1.3-7.7); Neutrophils % (A) 82 %; Platelet Count 359 k/uL (150-450); RBC 3.24 m/uL (4.30-5.90); RDW 16.1 % (11.5-15.5); WBC 9.1 k/uL (3.8-10.6)
[2019-02-19] MEDS ORDERED: traMADol 50 MG TAB PO STA (17:22)
[2019-02-19 17:43] LABS: ALT 42 U/L (21-72); AST 131 U/L (17-59); African American GFR (CKD) >90 (>60 ml/min/1.73 sqM); Albumin 2.8 g/dL (3.5-5.0); Alkaline Phosphatase 278 U/L (38-126); Anion Gap 5 mmol/L; Blood Urea Nitrogen 25 mg/dL (9-20); Calcium 7.6 mg/dL (8.4-10.2); Carbon Dioxide 23 mmol/L (22-30); Chloride 109 mmol/L (98-107); Glucose 93 mg/dL (74-99); Potassium 5.1 mmol/L (3.5-5.1); Sodium 137 mmol/L (137-145); Total Bilirubin 0.3 mg/dL (0.2-1.3); Total Protein 5.4 g/dL (6.3-8.2)
[2019-02-19 17:43] LABS: Amorphous Sediment,Urine Rare /hpf; Appearance,Urine Cloudy (Clear); Bilirubin,Urine Negative (Negative); Blood,Urine Negative (Negative); Color,Urine Yellow; Glucose,Urine (UA) Negative (Negative); Ketones,Urine 1+ (Negative); Leukocyte Esterase,Urine Negative (Negative); Mucus,Urine Many /hpf; Nitrite,Urine Negative (Negative); PH, Urine 5.5 (5.0-8.0); Protein,Urine 2+ (Negative); RBC,Urine 1 /hpf (0-5); Specific Gravity,Urine 1.026 (1.001-1.035); Urobilinogen,Urine <2.0 mg/dL (<2.0)
[2019-02-19] MEDS ORDERED: NALOXONE 0.4 MG/ML 1 ML VIAL IV PRN (18:31)
[2019-02-19] MEDS ORDERED: ACETAMINOPHEN TAB 325 MG TAB PO PRN (18:49)
[2019-02-19] MEDS ORDERED: ONDANSETRON 4 MG/2 ML VIAL IVP PRN (18:49)
[2019-02-19] MEDS ORDERED: traMADol 50 MG TAB PO PRN (18:49)
[2019-02-19] MEDS: SODIUM CHLORIDE 0.9% 1,000 ML IV SCH (20:10)
[2019-02-19] MEDS: LORazepam 2 MG/ML INJ IV SCH (20:11)
--- NOTE | 2019-02-19 21:44 | CT ---
EXAMINATION: CT brain wo con DATE AND TIME: 02/19/2019 8:51 PM CLINICAL INDICATION: PHH; Pain after fall TECHNIQUE: Standard departmental protocol.; 1231.4; COMPARISON: None. FINDINGS: The calvarium is intact. There is no intracranial hemorrhage. There is no intracranial mass or mass effect. No definite new intra-axial or extra-axial attenuation defect. The paranasal sinuses, middle ear cavities, and mastoid sinus air cells are clear. The orbits are unremarkable. IMPRESSION: NO ACUTE PROCESS.
[2019-02-19] MEDS ORDERED: PROCHLORPERAZINE 10 MG TAB PO PRN (22:16)
[2019-02-20] MEDS: LORazepam 2 MG/ML INJ IV SCH (01:23)
[2019-02-20] MEDS: SODIUM CHLORIDE 0.9% 1,000 ML IV SCH ×2 (04:44→16:23)
[2019-02-20 04:52] LABS: Glucose,Whole Blood 81 mg/dL (75-99)
[2019-02-20] MEDS ORDERED: LORazepam 2 MG/ML INJ IV PRN ×2 (05:35→06:56)
--- NOTE | 2019-02-20 06:34 | CT ---
EXAM: CT Head Without Intravenous Contrast CLINICAL HISTORY: Decreased level of consciousness TECHNIQUE: Axial computed tomography images of the head/brain without intravenous contrast. CTDI is 60.3 mGy and DLP is 1090.4 mGy-cm. This CT exam was performed using one or more of the following dose reduction techniques: automated exposure control, adjustment of the mA and/or kV according to patient size, and/or use of iterative reconstruction technique. COMPARISON: CT head dated 02/19/2019 FINDINGS: Brain: No acute infarct, hemorrhage, mass or edema. Chronic small vessel ischemic disease and senescent changes. Ventricles: Unremarkable. No ventriculomegaly. Bones/joints: Unremarkable. No acute fracture. Soft tissues: Unremarkable. Sinuses: Minimal mucosal thickening of the paranasal sinuses. Mastoid air cells: Unremarkable as visualized. No mastoid effusion. IMPRESSION: No acute findings.
[2019-02-20] MEDS: CALCIUM CARB-VIT D 500MG-200UN 1 EACH TAB PO SCH (09:25)
[2019-02-20] MEDS: ASPIRIN 81 MG PO SCH (09:25)
[2019-02-20] MEDS: LISINOPRIL 10 MG TAB PO SCH (09:25)
[2019-02-20] MEDS ORDERED: QUEtiapine 25 MG TAB PO PRN (11:11)
--- NOTE | 2019-02-20 11:37 | P.HPIM ---
History of Present Illness 78-year-old pleasant gentleman was recently discharged from the hospital after he has a prostate cancer with bone metastasis and no brain metastases came in because of the increased confusion and the he is unable to manage him. Patient is not a candidate for chemotherapy chemo therapy is not the plan at this Had extensive discussion with the family and the there are not many options left if it's not chemotherapy and the plan was made to make him hospice. I cannot get any history from the patient. Patient received Ativan, because of which she is barely arousable. There is no evidence of any infection urine tract infection are the pneumonia. Review of Systems Unable to obtain Past Medical History Past Medical History: Cancer, Dementia, Hyperlipidemia, Hypertension Additional Past Medical History / Comment(s): PROSTATE CANCER- METASTASIS TO BONES, Restless leg syndrome History of Any Multi-Drug Resistant Organisms: None Reported Past Surgical History: Prostate Surgery Additional Past Surgical History / Comment(s): Tumor removed from neck x2, Chemotherapy 5 weeks ago Past Anesthesia/Blood Transfusion Reactions: No Reported Reaction Past Psychological History: No Psychological Hx Reported Smoking Status: Former smoker Past Alcohol Use History: None Reported Past Drug Use History: None Reported Medications and Allergies Home Medications Medication Instructions Recorded Confirmed Type Aspirin EC [Ecotrin Low Dose] 81 mg PO DAILY 01/31/19 02/19/19 History Calcium Carbonate/Vitamin D3 1 tab PO DAILY 01/31/19 02/19/19 History [Calcium 600-Vit D3 200 Tablet] Gabapentin [Neurontin] 200 mg PO TID 01/31/19 02/19/19 History Lisinopril [Zestril] 10 mg PO DAILY 01/31/19 02/19/19 History Multivitamins, Thera [Multivitamin 1 tab PO DAILY 01/31/19 02/19/19 History (formulary)] [place]-3 Fatty Acids [[place]-3] 1,000 mg PO DAILY 01/31/19 02/19/19 History Prochlorperazine [Compazine] 10 mg PO Q6H PRN 01/31/19 02/19/19 History Simvastatin [Zocor] 10 mg PO HS 01/31/19 02/19/19 History rOPINIRole HCL [Requip] 0.5 mg PO HS 01/31/19 02/19/19 History traMADol HCl [Ultram] 50 mg PO Q6H PRN 01/31/19 02/19/19 History Allergies Allergy/AdvReac Type Severity Reaction Status Date / Time No Known Allergies Allergy Verified 02/19/19 16:43 Physical Exam Vitals: Vital Signs Temp Pulse Pulse Resp BP BP Pulse Ox 02/20/19 05:37 97.5 F L 82 24 139/63 95 02/20/19 04:58 97.4 F L 84 16 163/68 95 02/20/19 00:10 82 24 02/19/19 21:28 98.2 F 82 16 132/64 98 02/19/19 20:00 98.8 F 83 20 123/58 96 02/19/19 16:26 78 18 104/53 97 02/19/19 13:54 97.9 F 86 18 101/63 96 Intake and Output 02/19/19 02/20/19 02/20/19 22:59 06:59 14:59 Intake Total 1100 Balance 1100 Intake: Intake, IV Titration 1100 Amount Sodium Chloride 0.9% 1, 100 000 ml @ 100 mls/hr IV . Q10H [facility] Rx#:[id number] Sodium Chloride 0.9% 1, 1000 000 ml @ 999 mls/hr IV . Q1H1M [facility] Rx#:[id number] Other: Voiding Method Diaper # Voids 2 PHYSICAL EXAMINATION: GENERAL: Patient is arousable drowsy makes of foot with verbal stimuli. Well developed, well nourished. HEENT: Pupils are round and equally reacting to light. EOMI. No scleral icterus. No conjunctival pallor. Normocephalic, atraumatic. No pharyngeal erythema. No thyromegaly. CARDIOVASCULAR: S1 and S2 present. No murmurs, rubs, or gallops. PULMONARY: Chest is clear to auscultation, no wheezing or crackles. ABDOMEN: Soft, nontender, nondistended, normoactive bowel sounds. No palpable organomegaly. MUSCULOSKELETAL: No joint swelling or deformity. EXTREMITIES: No cyanosis, clubbing, or pedal edema. NEUROLOGICAL: Unable to assess SKIN: No rashes. Results CBC & Chem 7: 02/19/19 16:16 02/19/19 16:16 Labs: Abnormal Lab Results - Last 24 Hours (Table) 02/19/19 02/19/19 02/19/19 Range/Units 16:16 16:16 17:34 RBC 3.24 L (4.30-5.90) m/uL Hgb 10.0 L (13.0-17.5) gm/dL Hct 30.7 L (39.0-53.0) % RDW 16.1 H (11.5-15.5) % Chloride 109 H (98-107) mmol/L BUN 25 H (9-20) mg/dL Calcium 7.6 L (8.4-10.2) mg/dL AST 131 H (17-59) U/L Alkaline Phosphatase 278 H (38-126) U/L Total Protein 5.4 L (6.3-8.2) g/dL Albumin 2.8 L (3.5-5.0) g/dL Urine Protein 2+ H (Negative) Urine Ketones 1+ H (Negative) Amorphous Sediment Rare H (None) /hpf Urine Mucus Many H (None) /hpf Thrombosis Risk Factor Assmnt - Choose All That Apply Any of the Below Risk Factors Present?: Yes Each Factor Represents 1 point: Medical pt on bed rest, Obesity (BMI >25) Other Risk Factors: Yes Each Risk Factor Represents 2 Points: Patient confined to bed, Malignancy Each Risk Factor Represents 3 Points: Age 75 years or older Other congenital or acquired thrombophilia - If yes, enter type in comment: No Thrombosis Risk Factor Assessment Total Risk Factor Score: 9 Thrombosis Risk Factor Assessment Level: High Risk Assessment and Plan Plan: -Altered mental status etiology is not clear why we dehydration at advancing prostate cancer. Abdomen generalized weakness and the falls: Seconded prostate cancer and cancer cachexia. -Prostate cancer metastatic disease bone metastases with the significant pain. -Dementia I cannot assess his stage of dementia as I'm unable to get any kind of history from the patient has patient received Ativan and drowsy and sleepy because of that -Hyperlipidemia -Hypertension -Restless leg syndrome For now will resume his home medications and continue -As mentioned above are discussed with the family and patient will be made hospice after evaluation by hospice services.
[2019-02-20 14:16] VITALS: BMI 30.4
--- NOTE | 2019-02-20 20:14 | P.CONS ---
History of Present Illness - Reason for Consult Consult date: 02/20/19 metastatic prostate cancer. Altered mentation,weakness - History of Present Illness Mr Vasquez is a an 78 yr old WM, diagnosed with adenocarcinoma of the prostate in late 2008. His PSA in 04/20 had been 7.82. His clinical stage was T2B, and he underwent a Robotic Assisted Laparoscopic Prostate[facility] in 07.21 at the [facility]. He had adjuvant EBRT in 02/19. His PSA in 03/21 was 0.410. He was started on LHRh agonist , I believe, in early fall of 2010, as his PSA in 05/23 had increased to 1.76. He took Casodex from 11/21 to 11/22, with initiation due to PSA increase to 4.13 in 11/21. He did not respond to withdrawal of the Casodex, wth PSA continuing to rise steadily 20.98 by 02/23. Bone scan in 11/23 showed no distinct metastases. However CT scan from 02/23 showed retroperitoneal and para- aortic adenopathy, maximal 1.9 cm in the P-A area. 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 He was thus referred for further recommendations. He started Zytiga + Prednisone on 03/29/14. PSA dropped to 2.6 in 09/26. His PSA from late 02/24 was stable at 2.89. He was changed to Xtandi in 09/27, as his PSA had increased steadily to 28+. He was started on Taxotere and Prednisone in 02/25 as PSA continued to increase . He is s/p 11 cycles. Treatment was stopped in 10/29 due to progressive side effects. He was started back on Xtandi in late 04/28 due to increase in PSA to 16.8. However PSA continued to increase ( up to 43 by 07/29) and thus Taxotere was resumed on 08/19/17. He is s/p 7 cycles after restarting. Treatment was held for a break, in 01/27. he was started back on taxotere on 10/20/18 as PSA had increased to 125.6. He is s/p 4 cycles he continued LHRH agonist Q 6mths with Urology. He was changed to Cabazitaxel due to continued PSA progression, as well as increasing neuropathy from the Taxotere, receiving cycle 1 on 01/12/19. The pa richard was subsequently admitted last month, with multiple complaints including confusion, agitation, decreased oral intake, lethargy and weakness. He had an extensive workup, including MRI of the brain, which was negative. He improved partially with hydration and adjustment of pain medications. It was felt that the patient likely had underlying dementia, that had progressed and worsened at a more rapid pace due to the effects of chemotherapy. Given his mental status, and for follow status overall it was decided during his previous admission that active treatment would be discontinued and a comfort care approach be followed. The patient's had stated that it would be difficult for her to care for him at home. However he could not be placed at the hospice house, or ECF with comfort, due to some financial issues. The office had been in touch with her as an outpatient to try to facilitate the above, without success. The patient has continued to do poorly at home, with very poor oral intake, lethargy, progressive weakness and falls. He was brought in this time as he had fallen and hurt the back of his head and left shoulder. CT of the brain did not show any obvious bleed or CVA. Patient was admitted for further management and consult placed Past Medical History Past Medical History: Cancer, Dementia, Hyperlipidemia, Hypertension Additional Past Medical History / Comment(s): PROSTATE CANCER- METASTASIS TO BONES, Restless leg syndrome History of Any Multi-Drug Resistant Organisms: None Reported Past Surgical History: Prostate Surgery Additional Past Surgical History / Comment(s): Tumor removed from neck x2, Eva motherapy 5 weeks ago Past Anesthesia/Blood Transfusion Reactions: No Reported Reaction Past Psychological History: No Psychological Hx Reported Smoking Status: Former smoker Past Alcohol Use History: None Reported Past Drug Use History: None Reported Medications and Allergies Home Medications Medication Instructions Recorded Confirmed Type Aspirin EC [Ecotrin Low Dose] 81 mg PO DAILY 01/31/19 02/19/19 History Calcium Carbonate/Vitamin D3 1 tab PO DAILY 01/31/19 02/19/19 History [Calcium 600-Vit D3 200 Tablet] Gabapentin [Neurontin] 200 mg PO TID 01/31/19 02/19/19 History Lisinopril [Zestril] 10 mg PO DAILY 01/31/19 02/19/19 History Multivitamins, Thera [Multivitamin 1 tab PO DAILY 01/31/19 02/19/19 History (formulary)] [place]-3 Fatty Acids [[place]-3] 1,000 mg PO DAILY 01/31/19 02/19/19 History Prochlorperazine [Compazine] 10 mg PO Q6H PRN 01/31/19 02/19/19 History Simvastatin [Zocor] 10 mg PO HS 01/31/19 02/19/19 History rOPINIRole HCL [Requip] 0.5 mg PO HS 01/31/19 02/19/19 History traMADol HCl [Ultram] 50 mg PO Q6H PRN 01/31/19 02/19/19 History Allergies Allergy/AdvReac Type Severity Reaction Status Date / Time No Known Allergies Allergy Verified 02/19/19 16:43 Physical Exam Vitals: Vital Signs Temp Pulse Pulse Resp BP BP Pulse Ox 02/20/19 16:00 85 18 02/20/19 11:39 97.9 F 85 18 158/70 94 L 02/20/19 08:00 85 18 02/20/19 05:37 97.5 F L 82 24 139/63 95 02/20/19 04:58 97.4 F L 84 16 163/68 95 02/20/19 00:10 82 24 02/19/19 21:28 98.2 F 82 16 132/64 98 02/19/19 20:00 98.8 F 83 20 123/58 96 Intake and Output 02/20/19 02/20/19 02/20/19 06:59 14:59 22:59 Intake Total 1160 600 Balance 1160 600 Intake: Intake, IV Titration 800 Amount Sodium Chloride 0.9% 1, 800 000 ml @ 100 mls/hr IV . Q10H [facility] Rx#:[id number] Oral 360 600 Other: Voiding Method Diaper Diaper Diaper # Voids 2 3 3 Weight 90.718 kg - Constitutional General appearance: no acute distress - EENT Eyes: EOMI, PERRLA ENT: hearing grossly normal, normal oropharynx - Neck Neck: no lymphadenopathy Thyroid: bilateral: normal size - Respiratory Respiratory: bilateral: diminished - Cardiovascular Rhythm: regular Heart sounds: normal: S1, S2 Abnormal Heart Sounds: systolic murmur - Gastrointestinal General gastrointestinal: normal bowel sounds, soft - Integumentary Integumentary: normal - Neurologic He lethargic, difficult to arouse. Comprehension markedly reduced. Affect is very slow. He was able to recognize me, but did not know my name. Recall appears worse than even his previous admission Neurologic: CNII-XII intact - Musculoskeletal Musculoskeletal: generalized weakness Results CBC & Chem 7: 02/19/19 16:16 02/19/19 16:16 CT Scan - head: pending Assessment and Plan (1) Altered mental state Narrative/Plan: History of the same as noted in the HPI. My of the brain done last month showed no evidence of metastatic disease but did show extensive white matter changes. It is therefore felt that the patient likely has underlying dementia, with more rapid progression than usual due to effects of chemotherapy. Clinical ly he appears to have progressed even further during this admission, though some of the deterioration may be transient due to dehydration. The possible etiology has been discussed in detail with him and his family. This has been one of the major factors in deciding that the patient is not a candidate for further active chemotherapy. Current Visit: No Status: Acute Priority: High Code(s): R41.82 - ALTERED MENTAL STATUS, UNSPECIFIED SNOMED Code(s): 430118190 (2) Weakness Narrative/Plan: This has been progressive, even compared to his previous admission. This is multifactorial. While dehydration is likely contributing, with possibly some improvement expected with hydration, I do not expect any major increase in his PS, given his current baseline. Current Visit: Yes Status: Acute Code(s): R53.1 - WEAKNESS SNOMED Code(s): 15255005 (3) Prostate CA Narrative/Plan: the patient has widely metastatic disease, and had just started a new line of therapy with 1 cycle, prior to his admission last month. As noted, due to rapidly progressing deterioration of his performance. Status it was decided in consultation with his family that he would be a poor candidate for continued treatment, and that a comfort care approach should be followed. It is difficult for the patient's to care for him at home. At the time of his previous discharge, and as an outpatient, or office has been in touch with his family referred to facilitate appropriate placement. However he has not been able to be placed in the hospice house or ECF with comfort and dementia care ([place]) due to some financial issues. The patient's performance status is worse compared to his previous admission. Certainly, he is appropriate for comfort care. manufacturing worker consult will be placed to work with the family for appropriate post discharge placement. Current Visit: No Status: Acute Priority: High Code(s): C61 - MALIGNANT NEOPLASM OF PROSTATE SNOMED Code(s): 904612683
[2019-02-20] MEDS ORDERED: ATORVASTATIN 10 MG TAB PO SCH (21:00)
[2019-02-20] MEDS ORDERED: LISINOPRIL 10 MG TAB PO STA (21:56)
[2019-02-21] MEDS: SODIUM CHLORIDE 0.9% 1,000 ML IV SCH ×2 (02:10→12:04)
[2019-02-21] MEDS: LISINOPRIL 10 MG TAB PO SCH (08:22)
[2019-02-21] MEDS: CALCIUM CARB-VIT D 500MG-200UN 1 EACH TAB PO SCH (08:23)
[2019-02-21] MEDS: ASPIRIN 81 MG PO SCH (08:23)
[2019-02-21 11:23] LABS: African American GFR (CKD) >90 (>60 ml/min/1.73 sqM); Anion Gap 5 mmol/L; Blood Urea Nitrogen 18 mg/dL (9-20); Calcium 6.8 mg/dL (8.4-10.2); Carbon Dioxide 23 mmol/L (22-30); Chloride 110 mmol/L (98-107); Glucose 106 mg/dL (74-99); Potassium 4.6 mmol/L (3.5-5.1); Sodium 138 mmol/L (137-145)
[2019-02-21 12:03] VITALS: BP 160/80; RESP 18; TEMP 99.3
--- NOTE | 2019-02-21 13:42 | P.DS ---
Providers Date of admission: 02/19/19 20:09 Attending physician: Jose D Walton MD Consults: 02/19/19 18:31 Consult Physician Routine Consulting Provider: Wilber Cavazos Consult Reason/Comments: Weakness, falls, leg pains. Do you want consulting provider notified?: Yes, Notify in am Primary care physician: [facility] [place] Course: 78-year-old pleasant gentleman was recently discharged from the hospital after he has a prostate cancer with bone metastasis and no brain metastases came in because of the increased confusion and the he is unable to manage him. Patient is not a candidate for chemotherapy chemo therapy is not the plan at this Had extensive discussion with the family and the there are not many options left if it's not chemotherapy and the plan was made to make him hospice. I cannot get any history from the patient. Patient received Ativan, because of which she is barely arousable. There is no evidence of any infection urine tract infection are the pneumonia. 02/21/2019 Patient is more arousable today but still drowsy did receive Seroquel last night. Family decided subacute rehabilitation most probably hospitalization will be made as an outpatient and patient will be initiated and hospice outpatient PHYSICAL EXAMINATION: GENERAL: More alert but unable to assess his orientation.. Well developed, well nourished. HEENT: Pupils are round and equally reacting to light. EOMI. No scleral icterus. No conjunctival pallor. Normocephalic, atraumatic. No pharyngeal erythema. No thyromegaly. CARDIOVASCULAR: S1 and S2 present. No murmurs, rubs, or gallops. PULMONARY: Chest is clear to auscultation, no wheezing or crackles. ABDOMEN: Soft, nontender, nondistended, normoactive bowel sounds. No palpable organomegaly. MUSCULOSKELETAL: No joint swelling or deformity. EXTREMITIES: No cyanosis, clubbing, or pedal edema. NEUROLOGICAL: Unable to assess SKIN: No rashes. Assessment and Plan Plan: -Altered mental status etiology is not clear to problem metabolic encephalopathy from dehydration or advancing prostate cancer Abdomen generalized weakness and the falls: Seconded prostate cancer and cancer cachexia. -Prostate cancer metastatic disease bone metastases with the significant pain. -Dementia I cannot assess his severity of dementia -Hyperlipidemia -Hypertension -Restless leg syndrome Patient Condition at Discharge: Stable Plan - Discharge Summary Discharge Rx Participant: No New Discharge Prescriptions: New QUEtiapine [SEROquel] 25 mg PO HS PRN #20 tab PRN Reason: Agitation traMADol HCl [Ultram] 50 mg PO Q6H PRN #12 tab PRN Reason: Moderate Pain Continue rOPINIRole HCL [Requip] 0.5 mg PO HS Simvastatin [Zocor] 10 mg PO HS Prochlorperazine [Compazine] 10 mg PO Q6H PRN PRN Reason: Nausea [place]-3 Fatty Acids [[place]-3] 1,000 mg PO DAILY Multivitamins, Thera [Multivitamin (formulary)] 1 tab PO DAILY Lisinopril [Zestril] 10 mg PO DAILY Gabapentin [Neurontin] 200 mg PO TID Calcium Carbonate/Vitamin D3 [Calcium 600-Vit D3 200 Tablet] 1 tab PO DAILY Aspirin EC [Ecotrin Low Dose] 81 mg PO DAILY Discontinued traMADol HCl [Ultram] 50 mg PO Q6H PRN PRN Reason: Pain Discharge Medication List Aspirin EC [Ecotrin Low Dose] 81 mg PO DAILY 01/31/19 [History] Calcium Carbonate/Vitamin D3 [Calcium 600-Vit D3 200 Tablet] 1 tab PO DAILY 01/31/19 [History] Gabapentin [Neurontin] 200 mg PO TID 01/31/19 [History] Lisinopril [Zestril] 10 mg PO DAILY 01/31/19 [History] Multivitamins, Thera [Multivitamin (formulary)] 1 tab PO DAILY 01/31/19 [History] [place]-3 Fatty Acids [[place]-3] 1,000 mg PO DAILY 01/31/19 [History] Prochlorperazine [Compazine] 10 mg PO Q6H PRN 01/31/19 [History] Simvastatin [Zocor] 10 mg PO HS 01/31/19 [History] rOPINIRole HCL [Requip] 0.5 mg PO HS 01/31/19 [History] QUEtiapine [SEROquel] 25 mg PO HS PRN #20 tab 02/21/19 [Rx] traMADol HCl [Ultram] 50 mg PO Q6H PRN #12 tab 02/21/19 [Rx] Follow up Appointment(s)/Referral(s): [facility],Clinic [Primary Care Provider] - 3 Days Patient Instructions/Handouts: Fall Prevention for Older Adults (ED) Discharge Disposition: TRANSFER TO SNF/F
[2019-02-21 14:04] VITALS: PULSE 80
== END 2019-02-21 18:00 ==
LOC: EC 12:55 → 3NMEDONC 20:09
PROVIDERS: ADMIT Internal Medicine; ATTEND Internal Medicine
DX: R41.82 Altered mental status, unspecified (principal); G93.41 Metabolic encephalopathy; E86.0 Dehydration; E78.5 Hyperlipidemia, unspecified; G25.81 Restless legs syndrome; F03.90 Unspecified dementia, unspecified severity, without behavioral disturbance, psychotic disturbance, mood disturbance, and anxiety; I10 Essential (primary) hypertension; R64 Cachexia; C79.51 Secondary malignant neoplasm of bone; E66.9 Obesity, unspecified; Z68.30 Body mass index [BMI] 30.0-30.9, adult; G89.3 Neoplasm related pain (acute) (chronic); Z79.82 Long term (current) use of aspirin; Z79.899 Other long term (current) drug therapy; Z85.46 Personal history of malignant neoplasm of prostate; W19.XXXA Unspecified fall, initial encounter; Z91.81 History of falling; Z87.891 Personal history of nicotine dependence; Z92.21 Personal history of antineoplastic chemotherapy
CPT/HCPCS: 96376; 96361 ×3; 96375 ×2; 96374; 99285; 36415; 97163; 80053; 80048; 82140; 85025; 81001; 70450 ×2; G0378 ×3; J2060 ×2; J2405; J1642